=== PATIENT | female | born 1970 | race African-American/Black ===

== ENCOUNTER 2017-07-09 16:31 | Inpatient (IN) | payer OTHER ==
[2017-07-09 16:37] VITALS: BMI 49.9
--- NOTE | 2017-07-09 17:35 | PDOC ---
History of Present Illness <Wendy Tripathi - Last Filed: 07/09/17 22:56> - General History Source: Patient Exam Limitations: No Limitations <Emani Edge - Last Filed: 07/13/17 08:08> - General Chief Complaint: Blood Pressure Problem Stated Complaint: S.O.B (PCP SENT) Time Seen by Provider: 07/09/17 17:34 - History of Present Illness Initial Comments: 07/09/17 17:49 47 yr female history of HTN, borderline DM, chronic bronchitis presents with cough for 2 weeks getting worse. Pt was treated with prednisone, albuterol with no relief. Pt went to her PMD this am found to be hypertensive was given 0.1mg clonidine PO and was told to go to the ER. Pt states she had some things to do "that cause her stress" and is in the ER now. Pt c/o headache and cough no chest pain neg numbness or tingling. (Emani Edge) Past History <Wendy Tripathi - Last Filed: 07/09/17 22:56> - Past Medical History Asthma: Yes HTN: Yes - Immunization History Immunization Up to Date: Yes - Suicide/Smoking/Psychosocial Hx Smoking History: Current some day smoker Number of Cigarettes Smoked Daily: 5 Information on smoking cessation initiated: No 'Breaking Loose' booklet given: 03/01/15 Hx Alcohol Use: No Drug/Substance Use Hx: No <Emani Edge - Last Filed: 07/13/17 08:08> - Past Medical History Allergies/Adverse Reactions: Allergies Allergy/AdvReac Type Severity Reaction Status Date / Time No Known Allergies Allergy Verified 07/09/17 16:34 Home Medications: Ambulatory Orders Albuterol Sulfate Inhaler - [Ventolin HFA Inhaler -] 2 inh PO Q4H PRN 02/28/15 Ascorbic Acid [Vitamin C] 100 mg PO DAILY #30 tablet 03/03/15 Benzonatate [Tessalon Perle -] 100 mg PO TID #21 capsule 07/17/16 Hydralazine HCl [Apresoline -] 25 mg PO TID 07/10/17 Metformin HCl 500 mg PO BID 07/10/17 Spironolactone 50 mg PO DAILY 07/10/17 Enalapril Maleate [Vasotec] 20 mg PO BID #60 tablet 07/11/17 Prednisone [Deltasone -] 10 mg PO DAILY #2 tablet 07/11/17 Prednisone [Deltasone -] 20 mg PO DAILY #2 tablet 07/11/17 Cardiac Specific PMH - Complaint Specific PMHX Abdominal Aortic Aneurysm: No Angina: No Cardiac Arrhythmia: No Cardiac Stent: No GERD: No Myocardial Infarction: No Pacemaker: No Pulmonary Embolus: No Valvular Heart Disease: No Peripheral Vascular Disease: No <Emani Edge - Last Filed: 07/13/17 08:08> Review of Systems - Review of Systems Able to Perform ROS?: Yes Is the patient limited Syriac proficient: No Constitutional: No: Symptoms Reported HEENTM: No: Symptoms Reported Respiratory: Yes: Cough, Wheezing Cardiac (ROS): No: Symptoms Reported ABD/GI: No: Symptoms Reported, Other : No: Symptoms Reported Musculoskeletal: No: Muscle Pain Integumentary: No: Symptoms Reported <Emani Egde - Last Filed: 07/13/17 08:08> *Physical Exam - Physical Exam General Appearance: Yes: Nourished, Appropriately Dressed HEENT: positive: EOMI, PARVEEN, Normal ENT Inspection, TMs Normal, Pharynx Normal, Other (post nasal drip ) Neck: positive: Supple. negative: Tender Respiratory/Chest: positive: Wheezing Cardiovascular: positive: Regular Rhythm, Regular Rate Gastrointestinal/Abdominal: positive: Normal Bowel Sounds, Soft Musculoskeletal: positive: Normal Inspection Extremity: positive: Normal Capillary Refill, Normal Inspection, Normal Range of Motion Integumentary: positive: Normal Color, Dry, Warm Neurologic: positive: Fully Oriented, Alert, Normal Mood/Affect, Normal Response , Motor Strength 5/5 <Emani Edge - Last Filed: 07/13/17 08:08> - Vital Signs Last Vital Signs Temp Pulse Resp BP Pulse Ox 98.4 F 72 20 172/105 96 07/11/17 19:54 07/11/17 19:54 07/11/17 19:54 07/11/17 19:54 07/11/17 09:00 Heart Score/ECG Review <Wendy Tripathi - Last Filed: 07/09/17 22:56> - ECG Intrepretation Rhythm: Regular Rhythm - ST and T Prolonged Q-T Interval: Yes <Emani Edge - Last Filed: 07/13/17 08:08> - ST and T Comment:: 07/09/17 18:33 signed by ER attending (Emani Edge) ED Treatment Course - LABORATORY CBC & Chemistry Diagram: 07/09/17 18:11 07/09/17 18:11 <Wendy Tripathi - Last Filed: 07/09/17 22:56> - LABORATORY CBC & Chemistry Diagram: 07/11/17 05:35 07/11/17 05:35 <Emani Edge - Last Filed: 07/13/17 08:08> - ADDITIONAL ORDERS Additional order review: 07/10/17 07/09/17 06:15 18:11 RBC 5.43 H 5.55 H D MCV 74.2 L 74.4 L MCHC 31.6 L 31.9 L RDW 18.6 H 18.6 H D MPV 9.1 9.2 Neutrophils % 81.6 D 54.8 Lymphocytes % 13.1 D 31.3 D Monocytes % 5.0 7.8 Eosinophils % 0.1 D 5.4 H D Basophils % 0.2 0.7 - RADIOLOGY Radiology Studies Ordered: Category Date Time Status CHEST PA & LAT [RAD] Stat Radiology 07/09/17 19:04 Completed - Medications Given in the ED: ED Medications Discontinued Medications Generic Name Dose Route Start Last Admin Trade Name Freq PRN Reason Stop Dose Admin Acetaminophen 650 mg 07/09/17 17:48 07/09/17 18:13 Tylenol - PO 07/09/17 17:49 650 mg ONCE ONE Administration Albuterol/Ipratropium 1 amp 07/09/17 17:44 07/09/17 18:17 Duoneb - NEB 07/09/17 17:45 1 amp ONCE ONE Administration Albuterol/Ipratropium 1 amp 07/10/17 11:29 07/11/17 13:00 Duoneb - NEB 1 amp Q4H PRN Administration SHORTNESS OF BREATH Clonidine 0.1 mg 07/09/17 17:44 07/09/17 18:13 Catapres - PO 07/09/17 17:45 0.1 mg ONCE ONE Administration Enalapril Maleate 20 mg 07/09/17 18:51 07/09/17 19:14 Vasotec - PO 07/09/17 18:52 20 mg ONCE ONE Administration Enalapril Maleate 20 mg 07/10/17 12:45 07/11/17 09:22 Vasotec - PO 20 mg DAILY [facility] Administration Heparin Sodium (Porcine) 5,000 unit 07/10/17 22:00 07/11/17 13:52 Heparin - SQ 5,000 unit TID RAND Administration Hydralazine HCl 25 mg 07/10/17 14:00 07/11/17 13:52 Apresoline - PO 25 mg TID RAND Administration Hydrochlorothiazide 25 mg 07/09/17 18:50 07/09/17 19:14 Hctz - PO 07/09/17 18:51 25 mg ONCE ONE Administration Hydrochlorothiazide 50 mg 07/10/17 12:45 07/10/17 13:07 Hctz - PO 50 mg DAILY RAND Administration Labetalol HCl 1,000 mg/ Sodium 1,000 mls @ 120 mls/hr 07/10/17 16:15 07/10/17 17:35 Chloride IV Not Given TITR RAND 2 MG/MIN Insulin Aspart 1 vial 07/10/17 07:00 07/11/17 16:52 Novolog Vial Sliding Scale - SQ Not Given ACHS [facility] Protocol Pantoprazole Sodium 40 mg 07/10/17 10:00 07/11/17 09:22 Protonix - PO 40 mg DAILY RAND Administration Prednisone 60 mg 07/09/17 18:51 07/09/17 19:14 Deltasone - PO 07/09/17 18:52 60 mg ONCE ONE Administration Prednisone 40 mg 07/10/17 12:00 07/11/17 09:22 Deltasone - PO 07/11/17 10:01 40 mg DAILY RAND Administration Spironolactone 25 mg 07/09/17 18:51 07/09/17 19:14 Aldactone - PO 07/09/17 18:52 25 mg ONCE ONE Administration Spironolactone 50 mg 07/10/17 12:45 07/11/17 09:22 Aldactone - PO 50 mg DAILY RAND Administration Medical Decision Making <Wendy Tripathi - Last Filed: 07/09/17 22:56> <Emani Edge - Last Filed: 07/13/17 08:08> - Medical Decision Making 07/09/17 17:52 cc: cough for one week getting worse, headache , no chest pain or SOB pt recently treated with prednsione and albuterol pt states she is non complaint at times with her HTN meds pt seen in her PMD's office today given 0.1mg clonidine at 11am pt arrives in ER now for further evaluation 07/09/17 17:57 will give 0.1mg clonidine and re-eval in one hour 07/09/17 18:09 Ekg reviewed with unchanged from 2015. case discussed [facility] will give pt her usual antihypertensive meds and treat for bronchitis. 07/09/17 18:[address] Mccain would like troponin done and wait for that result. 07/09/17 19:00 signed out to NICHOL Tripathi 07/09/17 19:03 07/09/17 19:04 (Emani Edge) *DC/Admit/Observation/Transfer - Discharge Dispostion Admit: Yes <Wendy Tripathi - Last Filed: 07/09/17 22:56> <Emani Edge - Last Filed: 07/13/17 08:08> Diagnosis at time of Disposition: Elevated troponin HTN (hypertension) Qualifiers: Hypertension type: essential hypertension Qualified Code(s): I10 - Essential ( primary) hypertension - Discharge Dispostion Disposition: HOME Condition at time of disposition: Improved - Prescriptions - Referrals - Patient Instructions
[2017-07-09] MEDS ORDERED: ALBUTEROL SO4 2.5/IPRATROPIUM 0.5 INH SOL 3 ML VIAL.NEB. NEB ONE ×2 (17:44→18:14)
[2017-07-09] MEDS ORDERED: cloNIDine HCL 0.1 MG TABLET PO ONE (17:44)
[2017-07-09] MEDS ORDERED: ACETAMINOPHEN 325 MG TABLET (FP) PO ONE (17:48)
[2017-07-09] MEDS ORDERED: ACETAMINOPHEN 325 MG TABLET (FP) ONE (18:10)
[2017-07-09] MEDS ORDERED: cloNIDine HCL 0.1 MG TABLET ONE (18:11)
[2017-07-09 18:31] LABS: BASOPHIL 0.7 % (0-2.0); EOSINOPHIL 5.4 % (0-4.5); MCH 23.7 pg (25.7-33.7); MCHC 31.9 g/dl (32.0-36.0); MEAN CELL VOLUME 74.4 fl (80-96); MEAN PLT VOLUME 9.2 fl (7.5-11.1); NEUTROPHILS 54.8 % (42.8-82.8); PLATELET COUNT 297 K/MM3 (134-434); RDW 18.6 % (11.6-15.6); WHITE BLOOD COUNT 9.2 K/mm3 (4.0-10.0)
[2017-07-09 18:43] LABS: URINE APPEARANCE CLEAR; URINE BILIRUBIN NEGATIVE (NEGATIVE); URINE BLOOD NEGATIVE (NEGATIVE); URINE COLOR YELLOW; URINE GLUCOSE (UA) NEGATIVE (NEGATIVE); URINE KETONE NEGATIVE (NEGATIVE); URINE LEUK ESTERASE NEGATIVE (NEGATIVE); URINE NITRITE NEGATIVE (NEGATIVE); URINE PROTEIN NEGATIVE (NEGATIVE); URINE UROBILINOGEN NEGATIVE mg/dL (0.2-1.0)
[2017-07-09 18:43] LABS: ANION GAP 5 (8-16); BILIRUBIN,TOTAL 0.9 mg/dL (0.2-1.0); CALCIUM 9.5 mg/dL (8.5-10.1); CO2 32 mmol/L (21-32); GLUCOSE,RANDOM 105 mg/dL (74-106); SGOT/AST 8 U/L (15-37); SGPT/ALT 22 U/L (12-78); TOT PROT 7.7 g/dl (6.4-8.2)
[2017-07-09 18:44] LABS: ALK PHOS 62 U/L (45-117)
[2017-07-09] MEDS ORDERED: HYDROCHLOROTHIAZIDE 25 MG TABLET (FP) PO ONE (18:50)
[2017-07-09] MEDS ORDERED: SPIRONOLACTONE 25 MG TABLET (FP) PO ONE (18:51)
[2017-07-09] MEDS ORDERED: ENALAPRIL MALEATE 10 MG TABLET (FP) PO ONE (18:51)
[2017-07-09] MEDS ORDERED: predniSONE 20 MG TABLET (UD) PO ONE (18:51)
[2017-07-09] MEDS ORDERED: HYDROCHLOROTHIAZIDE 25 MG TABLET (FP) ONE (18:58)
[2017-07-09] MEDS ORDERED: ENALAPRIL MALEATE 5 MG TABLET (FP) ONE (18:58)
[2017-07-09] MEDS ORDERED: predniSONE 20 MG TABLET (UD) ONE (18:58)
[2017-07-09] MEDS ORDERED: SPIRONOLACTONE 25 MG TABLET (FP) ONE (18:59)
[2017-07-09 20:40] LABS: TROPONIN I 0.1 ng/ml (0.00-0.05)
--- NOTE | 2017-07-09 22:50 | HP ---
CHIEF COMPLAINT: Elevated BP PCP: Dr. Pichardo HISTORY OF PRESENT ILLNESS: 47 y.o. F with pmh of HTN, borderline DM, and asthma/chronic bronchitis presented from PCP for elevated BP. Patient states she had a cough and went to [facility] ED last week. She was d/c with albuterol and prednisone 40 mg, which she has been taking for the past week. She also endorses taking OTC nyquil and robitussin. She states she has decreased compliance over the past week of her HTN medications at night due to the OTC medication. Patient went to her PCP today due to her cough that has not improved. She was found to have BP of >200/ 100. She was given 0.1 mg clonidine and sent to the ED. ER course was notable for: (1) VS- elevated BP, troponin- 0.10 (2) UA- negative (3) EKG- NSR, prolonged qt interval HOME MEDICATIONS: Home Medications Medication Instructions Recorded Albuterol Sulfate Inhaler - 2 inh PO Q4H PRN 02/28/15 [Ventolin HFA Inhaler -] Hydrochlorothiazide [Hctz -] 25 mg PO DAILY 02/28/15 Ascorbic Acid [Vitamin C] 100 mg PO DAILY #30 tablet 03/03/15 Benzonatate [Tessalon Pearls -] 100 mg PO TID #21 capsule 07/17/16 Prednisone [Deltasone -] 40 mg PO DAILY #8 tablet 07/17/16 REVIEW OF SYSTEMS CONSTITUTIONAL: Absent: fever, chills, diaphoresis, generalized weakness, malaise, loss of appetite, weight change HEENT: Absent: rhinorrhea, nasal congestion, throat pain, throat swelling, difficulty swallowing, mouth swelling, ear pain, eye pain, visual changes CARDIOVASCULAR: Absent: chest pain, syncope, palpitations, irregular heart rate, lightheadedness , peripheral edema RESPIRATORY: Absent: cough, shortness of breath, dyspnea with exertion, orthopnea, wheezing, stridor, hemoptysis GASTROINTESTINAL: Absent: abdominal pain, abdominal distension, nausea, vomiting, diarrhea, constipation, melena, hematochezia GENITOURINARY: Absent: dysuria, frequency, urgency, hesitancy, hematuria, flank pain, genital pain MUSCULOSKELETAL: Absent: myalgia, arthralgia, joint swelling, back pain, neck pain SKIN: Absent: rash, itching, pallor HEMATOLOGIC/IMMUNOLOGIC: Absent: easy bleeding, easy bruising, lymphadenopathy, frequent infections ENDOCRINE: Absent: unexplained weight gain, unexplained weight loss, heat intolerance, cold intolerance NEUROLOGIC: Absent: headache, focal weakness or paresthesias, dizziness, unsteady gait, seizure, mental status changes, bladder or bowel incontinence PSYCHIATRIC: Absent: anxiety, depression, suicidal or homicidal ideation, hallucinations. PHYSICAL EXAMINATION Vital Signs - 24 hr 07/09/17 07/09/17 07/09/17 16:34 19:39 22:07 Temperature 99 F 98.2 F 98.7 F Pulse Rate 101 H Pulse Rate [ 90 83 Right Radial] Respiratory 18 20 18 Rate Blood Pressure 190/113 Blood Pressure 163/115 159/108 [Left Arm] O2 Sat by Pulse 100 98 98 Oximetry (%) GENERAL: Awake, alert, and fully oriented, in no acute distress. HEAD: Normal with no signs of trauma. EYES: Pupils equal, round and reactive to light, extraocular movements intact, sclera anicteric, conjunctiva clear. No lid lag. EARS, NOSE, THROAT: Oropharynx clear without exudates. Moist mucous membranes. NECK: Normal range of motion, supple without lymphadenopathy, JVD, or masses. LUNGS: Breath sounds equal, Mild expiratory wheezes, and no crackles. No accessory muscle use. HEART: Regular rate and rhythm, normal S1 and S2 without murmur, rub or gallop. ABDOMEN: Soft, nontender, not distended, normoactive bowel sounds, no guarding, no rebound, no masses. No hepatomegaly or splenomegaly. MUSCULOSKELETAL: Normal range of motion at all joints. No bony deformities or tenderness. No CVA tenderness. UPPER EXTREMITIES: 2+ pulses, warm, well-perfused. No cyanosis. No clubbing. No peripheral edema. LOWER EXTREMITIES: 2+ pulses, warm, well-perfused. No calf tenderness. No peripheral edema. NEUROLOGICAL: Cranial nerves II-XII intact. Normal speech. PSYCHIATRIC: Cooperative. Good eye contact. Appropriate mood and affect. SKIN: Warm, dry, normal turgor, no rashes or lesions noted, normal capillary refill. Laboratory Results - last 24 hr 07/09/17 07/09/17 07/09/17 18:06 18:11 18:11 WBC 9.2 RBC 5.55 H D Hgb 13.2 D Hct 41.3 D MCV 74.4 L MCH 23.7 L MCHC 31.9 L RDW 18.6 H D Plt Count 297 D MPV 9.2 Neutrophils % 54.8 Lymphocytes % 31.3 D Monocytes % 7.8 Eosinophils % 5.4 H D Basophils % 0.7 Sodium 136 Potassium 3.5 Chloride 99 Carbon Dioxide 32 Anion Gap 5 L BUN 15 D Creatinine 1.0 D Creat Clearance w eGFR 59.96 Random Glucose 105 Calcium 9.5 Magnesium Total Bilirubin 0.9 D AST 8 L ALT 22 D Alkaline Phosphatase 62 Creatine Kinase Creatine Kinase Index CK-MB (CK-2) Troponin I Total Protein 7.7 Albumin 4.0 Urine Color Yellow Urine Appearance Clear Urine pH 5.0 Urine Protein Negative Urine Glucose (UA) Negative Urine Ketones Negative Urine Blood Negative Urine Nitrite Negative Urine Bilirubin Negative Urine Urobilinogen Negative Urine HCG, Qual Negative 07/09/17 07/09/17 07/09/17 18:36 19:51 20:00 WBC RBC Hgb Hct MCV MCH MCHC RDW Plt Count MPV Neutrophils % Lymphocytes % Monocytes % Eosinophils % Basophils % Sodium Potassium Chloride Carbon Dioxide Anion Gap BUN Creatinine Creat Clearance w eGFR Random Glucose Calcium Magnesium 2.0 Total Bilirubin AST ALT Alkaline Phosphatase Creatine Kinase 153 Cancelled Creatine Kinase Index 0.7 CK-MB (CK-2) 1.184 Troponin I 0.10 H Cancelled Total Protein Albumin Urine Color Urine Appearance Urine pH Urine Protein Urine Glucose (UA) Urine Ketones Urine Blood Urine Nitrite Urine Bilirubin Urine Urobilinogen Urine HCG, Qual ASSESSMENT/PLAN: #Hypertensive urgency -BP better controlled -Restart home meds, confirm with pharmacy in the AM -Monitor BP -Vasotec 1.25 mg q4h prn for sbp >180 and dbp >110 #Troponinemia -Troponin #1- 0.1 -Trend troponins/EKG #DM, borderline -Hold metformin -BGM achs -ISS achs #Cough, 2/2 to chronic bronchitis -Prednisone 40 mg daily, taper as tolerated -Duonebs prn #FEN/GI -None -wnl -Sodium/Diabetic Diet #PPx -DVT- scd's -GI- protonix 40 mg po daily #Dispo -Admit to tele-obs -Trend troponins -Monitor BP Visit type - Emergency Visit Emergency Visit: Yes ED Registration Date: 07/10/17 Care time: The patient presented to the Emergency Department on the above date and was hospitalized for further evaluation of their emergent condition. - New Patient This patient is new to me today: Yes Date on this admission: 07/10/17 - Critical Care Critical Care patient: No
[2017-07-09] MEDS ORDERED: ENALAPRIL MALEATE 2.5 MG TABLET (FP) PO PRN (22:51)
--- NOTE | 2017-07-10 00:25 | PN ---
Teaching Attending Note Name of Resident: Houston Ferrera ATTENDING PHYSICIAN STATEMENT I saw and evaluated the patient. I reviewed the resident's note and discussed the case with the resident. I agree with the resident's findings and plan as documented. SUBJECTIVE: 47 year old female that presents to the ED, sent by PMD for evaluation of elevated blood pressure. She reports 10 day history of URI and dry cough for which she was prescribed prednisone. She also used over the counter mucomyst and cough syrup while skipping nightly dose of her blood pressure medications. Her BP in PMDs office was above 100 diastolic . She denied chest pain however Troponin was obtained in ED and was mildly positive PMH HTN Obesity OBJECTIVE: Vital Signs Temperature 98.7 F 07/09/17 22:07 Pulse Rate 83 07/09/17 22:07 Respiratory Rate 18 07/09/17 22:07 Blood Pressure 159/108 07/09/17 22:07 O2 Sat by Pulse Oximetry (%) 98 07/09/17 22:07 HEENT Perrl CVS S1 S2 WNL, no MRG RS CTA B/L EXT no edema CBC, BMP 07/09/17 18:11 07/09/17 18:11 ASSESSMENT AND PLAN: 1. Hypertensive urgency - restart home med regimen -Vasotec 1.25 mg q4h prn for sbp >180 and dbp >110 2. Troponinemia- likely secondary to htn strain - repeat Troponin - telemetry 3. Bronchitis/ URI likely viral -Duonebs prn -taper prednisone - PPI - decongestants at night - cough suppressants
[2017-07-10 07:01] LABS: BASOPHIL 0.2 % (0-2.0); EOSINOPHIL 0.1 % (0-4.5); MCH 23.4 pg (25.7-33.7); MCHC 31.6 g/dl (32.0-36.0); MEAN CELL VOLUME 74.2 fl (80-96); MEAN PLT VOLUME 9.1 fl (7.5-11.1); NEUTROPHILS 81.6 % (42.8-82.8); PLATELET COUNT 283 K/MM3 (134-434); RDW 18.6 % (11.6-15.6); WHITE BLOOD COUNT 10.5 K/mm3 (4.0-10.0)
[2017-07-10 07:26] LABS: ALBUMIN 3.9 g/dl (3.4-5.0); ANION GAP 10 (8-16); BILIRUBIN,TOTAL 0.4 mg/dL (0.2-1.0); CALCIUM 9.9 mg/dL (8.5-10.1); CO2 30 mmol/L (21-32); GLUCOSE,RANDOM 137 mg/dL (74-106); SGOT/AST 5 U/L (15-37); SGPT/ALT 22 U/L (12-78); TOT PROT 7.4 g/dl (6.4-8.2)
[2017-07-10 07:27] LABS: ALK PHOS 61 U/L (45-117)
[2017-07-10] MEDS: INSULIN SLIDING SCALE (NOVOLOG) 1 VIAL SQ SCH ×4 (08:05→22:41)
[2017-07-10] MEDS ORDERED: PANTOPRAZOLE 40 MG TABLET (FP) ONE (08:56)
[2017-07-10] MEDS: PANTOPRAZOLE 40 MG TABLET (FP) PO SCH (09:27)
[2017-07-10] MEDS ORDERED: ALBUTEROL SO4 2.5/IPRATROPIUM 0.5 INH SOL 3 ML VIAL.NEB. NEB ONE (10:10)
[2017-07-10] MEDS ORDERED: HYDROCHLOROTHIAZIDE 25 MG TABLET (FP) ONE ×2 (11:31→12:51)
[2017-07-10] MEDS ORDERED: HYDROCHLOROTHIAZIDE 25 MG TABLET (FP) PO SCH ×2 (11:45→12:45)
[2017-07-10] MEDS: ALBUTEROL SO4 2.5/IPRATROPIUM 0.5 INH SOL 3 ML VIAL.NEB. NEB PRN (11:46)
[2017-07-10] MEDS: predniSONE 20 MG TABLET (UD) PO SCH (11:52)
[2017-07-10] MEDS ORDERED: ENALAPRIL MALEATE 5 MG TABLET (FP) ONE (12:51)
[2017-07-10] MEDS ORDERED: SPIRONOLACTONE 25 MG TABLET (FP) ONE (12:52)
[2017-07-10] MEDS: ENALAPRIL MALEATE 10 MG TABLET (FP) PO SCH (13:07)
[2017-07-10] MEDS: SPIRONOLACTONE 25 MG TABLET (FP) PO SCH (13:07)
[2017-07-10] MEDS ORDERED: hydrALAZINE HCL 25 MG TABLET (FP) ONE (13:51)
[2017-07-10] MEDS: hydrALAZINE HCL 25 MG TABLET (FP) PO SCH ×2 (14:00→21:29)
--- NOTE | 2017-07-10 14:38 | EKG ---
Test Reason : Blood Pressure : / mmHG Vent. Rate : 083 BPM Atrial Rate : 083 BPM P-R Int : 130 ms QRS Dur : 092 ms QT Int : 434 ms P-R-T Axes : 033 -08 058 degrees QTc Int : 509 ms NORMAL SINUS RHYTHM MINIMAL VOLTAGE CRITERIA FOR LVH, MAY BE NORMAL VARIANT PROLONGED QT ABNORMAL ECG WHEN COMPARED WITH ECG OF 28-FEB-2015 18:45, NO SIGNIFICANT CHANGE WAS FOUND Confirmed by ALLEGRA MENDOZA, PAULETTE ([id number]) on 07/10/2017 2:37:36 PM Referred By: Confirmed By:PAULETTE DINH MD
--- NOTE | 2017-07-10 15:45 | CON.CARD ---
Cardiology Consult (text) - Consultation Consultation Note: CC: htn 47 yo smoker with h/o htn, NIDDM and asthma/chronic bronchitis who p/w cough and was noted to have htn and intermediate troponin elevation. cough for 2 weeks went to [facility] ED last week. She was d/c with albuterol and prednisone 40 mg. Was also taking multiple OTC cold medications: nyqui, mucinexl and robitussin. Additionally during this time she was only taking her medications on a daily basis. Followed up with her PMD today regarding cough and found to be hypertensive (BP of >200/100) was given 0.1mg clonidine PO and was told to go to the ER. + h/a, + cough productive of white sputum no sob, cp, palps, dizziness, le edema, orthopnea, pnd no f/c/s, n/v/d, decreased po intake, rashes, visual changes, bleeding. 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 Hasn't seen him in one year. pmhx/pshx: per hpi, additionally , hysterectomy and knee replacement. fam hx: no premature cad, scd. social hx: current smoker, social etoh, no illicits. ros: per hpi Ambulatory Orders Albuterol Sulfate Inhaler - [Ventolin HFA Inhaler -] 2 inh PO Q4H PRN 02/28/15 Hydrochlorothiazide [Hctz -] 50 mg PO DAILY 02/28/15 Ascorbic Acid [Vitamin C] 100 mg PO DAILY #30 tablet 03/03/15 Benzonatate [Tessalon Pearls -] 100 mg PO TID #21 capsule 07/17/16 Prednisone [Deltasone -] 40 mg PO DAILY #8 tablet 07/17/16 Enalapril Maleate [Vasotec] 20 mg PO DAILY 07/10/17 Hydralazine HCl [Apresoline -] 25 mg PO TID 07/10/17 Metformin HCl 500 mg PO BID 07/10/17 Spironolactone 50 mg PO DAILY 07/10/17 Current Medications Albuterol/Ipratropium (Duoneb -) 1 amp NEB Q4H PRN PRN Reason: SHORTNESS OF BREATH Last Admin: 07/10/17 11:46 Dose: 1 amp Enalapril Maleate (Vasotec -) 20 mg PO DAILY [facility] Last Admin: 07/10/17 13:07 Dose: 20 mg Hydralazine HCl (Apresoline -) 25 mg PO TID [facility] Last Admin: 07/10/17 14:00 Dose: 25 mg Hydrochlorothiazide (Hctz -) 50 mg PO DAILY [facility] Last Admin: 07/10/17 13:07 Dose: 50 mg Insulin Aspart (Novolog Vial Sliding Scale -) 1 vial SQ ACHS [facility] PRN Reason: Protocol Last Admin: 07/10/17 11:52 Dose: Not Given Metformin HCl (Glucophage -) 500 mg PO BID@0700,1630 [facility] Pantoprazole Sodium (Protonix -) 40 mg PO DAILY [facility] Last Admin: 07/10/17 09:27 Dose: 40 mg Prednisone (Deltasone -) 40 mg PO DAILY [facility] Stop: 07/11/17 10:01 Last Admin: 07/10/17 11:52 Dose: 40 mg Spironolactone (Aldactone -) 50 mg PO DAILY [facility] Last Admin: 07/10/17 13:07 Dose: 50 mg Vital Signs - 24 hr 07/09/17 07/09/17 07/09/17 16:34 19:39 22:07 Temperature 99 F 98.2 F 98.7 F Pulse Rate 101 H Pulse Rate [ 90 83 Right Radial] Respiratory 18 20 18 Rate Blood Pressure 190/113 Blood Pressure 163/115 159/108 [Left Arm] O2 Sat by Pulse 100 98 98 Oximetry (%) 07/10/17 05:30 Temperature Pulse Rate Pulse Rate [ 87 Right Radial] Respiratory 18 Rate Blood Pressure Blood Pressure 154/102 [Left Arm] O2 Sat by Pulse 96 Oximetry (%) Intake & Output 07/08/17 07/09/17 07/10/17 07/11/17 07:59 07:59 07:59 07:59 Weight 300 lb nad, calm, overweight jvd flat, neck supple diffuse wheezes, diminished bs, nl effort rrr nl s1, s2 no mrg, non-disp pmi + bs soft nt nd, no hsm ext without e/c/c + dp/pt no carotid bruits aaox3 no jaundice, diaphoresis. CBC, BMP 07/10/17 06:15 07/10/17 06:15 Laboratory Tests 07/09/17 07/09/1707/09/17 18:06 18:11 18:36 Sodium 136 Potassium 3.5 Carbon Dioxide 32 Magnesium 2.0 Total Bilirubin 0.9 D AST 8 L ALT 22 D Alkaline Phosphatase 62 Creatine Kinase Creatine Kinase Index CK-MB (CK-2) Troponin I Albumin 4.0 Urine HCG, Qual Negative 07/09/17 07/10/17 07/10/17 19:51 02:48 06:15 Sodium Potassium Carbon Dioxide Magnesium Total Bilirubin AST ALT Alkaline Phosphatase Creatine Kinase 153 Creatine Kinase Index 0.7 CK-MB (CK-2) 1.184 Troponin I 0.10 H 0.09 H Albumin 3.9 Urine HCG, Qual 07/10/17 06:15 Sodium Potassium Carbon Dioxide Magnesium Total Bilirubin AST ALT Alkaline Phosphatase Creatine Kinase Creatine Kinase Index CK-MB (CK-2) Troponin I 0.09 H Albumin Urine HCG, Qual ekg: nsr, prolonged qtc 509 ms (similar to qtc in 2015), no ischemic changes. tele sr 47 yo smoker with h/o htn, NIDDM and asthma/chronic bronchitis who p/w cough and was noted to have htn and intermediate troponin elevation. early onset htn/acute htn - acute elevation likely in setting of non-adherence to medications in combination with additional prednisone and cold medications which may have worsened htn. - would resume home regimen and monitor. however, hold hctz as below. can uptitrate enalapril dose if needed. - consider work up of secondary causes of htn as outpatient. tsh. - echo pending. elevated troponin - very minimal elevation in intermediate range (peak 0.1) with flat trend in absence of anginal sx's or ekg changes, no concern for acs at this time. - can consider outpatient stress testing once pulmonary issues resolve prolonged qtc ~ 500 ms - also present on ecg in 2015. no family hx of scd. - would reevaluate once bp improves to see if qtc normalizes. - would stop hctz which can prolong qtc. would also stop pantoprazole. - telemetry monitoring. - lyte repletion copd/+ tobacco - mgm't of wheezing/copd per pmd - tobacco cessation counseling.
--- NOTE | 2017-07-10 16:10 | PN ---
Physical Exam: SUBJECTIVE: Patient seen and examined still in ED awaiting a bed. Wants to go home, threatening to sign out AMA, because does not want to wait for a bed. Says she will not stay another night. Voices no physical complaints. Could not give list of home meds. OBJECTIVE: Vital Signs Period Temp Pulse Resp BP Sys/Ventura Pulse Ox Last 24 Hr 87 18 154/102 96 GENERAL: The patient is awake, alert, and fully oriented, in no acute distress. HEAD: Normal with no signs of trauma. EYES: PERRL, extraocular movements intact, sclera anicteric, conjunctiva clear. No ptosis. LUNGS: Breath sounds equal, clear to auscultation bilaterally, no wheezes, no crackles, no accessory muscle use. HEART: Regular rate and rhythm, S1, S2 without murmur, rub or gallop. ABDOMEN: Soft, nontender, nondistended, normoactive bowel sounds, no guarding, no rebound, no hepatosplenomegaly, no masses. EXTREMITIES: 2+ pulses, warm, well-perfused, no edema. NEUROLOGICAL: Cranial nerves II through XII grossly intact. Normal speech, moves all extremities freely. Laboratory Results - last 24 hr 07/10/17 07/10/17 07/10/17 02:48 06:15 06:15 WBC 10.5 H RBC 5.43 H Hgb 12.7 Hct 40.3 MCV 74.2 L MCH 23.4 L MCHC 31.6 L RDW 18.6 H Plt Count 283 MPV 9.1 Neutrophils % 81.6 D Lymphocytes % 13.1 D Monocytes % 5.0 Eosinophils % 0.1 D Basophils % 0.2 Sodium 135 L Potassium 3.9 Chloride 95 L Carbon Dioxide 30 Anion Gap 10 BUN 19 H D Creatinine 1.0 Creat Clearance w eGFR 59.96 Random Glucose 137 H D Calcium 9.9 Total Bilirubin 0.4 D AST 5 L D ALT 22 Alkaline Phosphatase 61 Troponin I 0.09 H Total Protein 7.4 Albumin 3.9 07/10/17 06:15 WBC RBC Hgb Hct MCV MCH MCHC RDW Plt Count MPV Neutrophils % Lymphocytes % Monocytes % Eosinophils % Basophils % Sodium Potassium Chloride Carbon Dioxide Anion Gap BUN Creatinine Creat Clearance w eGFR Random Glucose Calcium Total Bilirubin AST ALT Alkaline Phosphatase Troponin I 0.09 H Total Protein Albumin Active Medications Generic Name Dose Route Start Last Admin Trade Name Freq PRN Reason Stop Dose Admin Albuterol/Ipratropium 1 amp 07/10/17 11:29 07/10/17 11:46 Duoneb - NEB 1 amp Q4H PRN Administration SHORTNESS OF BREATH Enalapril Maleate 20 mg 07/10/17 12:45 07/10/17 13:07 Vasotec - PO 20 mg DAILY RAND Administration Hydralazine HCl 25 mg 07/10/17 14:00 07/10/17 14:00 Apresoline - PO 25 mg TID RAND Administration Hydrochlorothiazide 50 mg 07/10/17 12:45 07/10/17 13:07 Hctz - PO 50 mg DAILY RAND Administration Insulin Aspart 1 vial 07/10/17 07:00 07/10/17 11:52 Novolog Vial Sliding Scale - SQ Not Given ACHS [facility] Protocol Metformin HCl 500 mg 07/10/17 16:30 Glucophage - PO BID@0700,1630 [facility] Pantoprazole Sodium 40 mg 07/10/17 10:00 07/10/17 09:27 Protonix - PO 40 mg DAILY RAND Administration Prednisone 40 mg 07/10/17 12:00 07/10/17 11:52 Deltasone - PO 07/11/17 10:01 40 mg DAILY RAND Administration Spironolactone 50 mg 07/10/17 12:45 07/10/17 13:07 Aldactone - PO 50 mg DAILY RAND Administration Imaging ECG: sinus rhythm @ 83bpm; prolonged QT interval ASSESSMENT/PLAN: Hypertensive emergency --Remains hypertensive with cardiac involvement: elevated, flat trending troponins --restarted four (4) home anti-hypertensives (HCTZ, spironolactone, hydralazine, enalapril) but BP still markedly elevated --start labetolol drip --echo pending --cardiology consult requested NIDDM --hold metformin --Novolog sliding scale coverage Cough secondary to bronchitis --afebrile, no leukocytosis --tapering PO steroids --duonebs PRN Fluids: PO intake adequate Electrolytes: replete as indicated Nutrition: low sodium, diabetic DVT prophylaxis: subq heparin, oob, ambulation HOME MEDICATIONS RECONCILED WITH PHARMACY AND ENTERED INTO EMR Visit type - Emergency Visit Emergency Visit: Yes ED Registration Date: 07/10/17 Care time: The patient presented to the Emergency Department on the above date and was hospitalized for further evaluation of their emergent condition. - New Patient This patient is new to me today: Yes Date on this admission: 07/10/17 - Critical Care Critical Care patient: No
[2017-07-10] MEDS ORDERED: LABETALOL HCL INJECTION 1,000 MG in SODIUM CHLORIDE 800 ML IV SCH (16:15)
[2017-07-10] MEDS ORDERED: metFORMIN HCL 500 MG TABLET (FP) PO SCH (16:30)
[2017-07-10] MEDS: HEPARIN NA (PORCINE) 5,000 UNITS/ML 1ML VIAL SQ SCH (21:28)
[2017-07-11] MEDS: ALBUTEROL SO4 2.5/IPRATROPIUM 0.5 INH SOL 3 ML VIAL.NEB. NEB PRN ×2 (00:24→13:00)
[2017-07-11] MEDS: hydrALAZINE HCL 25 MG TABLET (FP) PO SCH ×2 (06:14→13:52)
[2017-07-11] MEDS: INSULIN SLIDING SCALE (NOVOLOG) 1 VIAL SQ SCH ×3 (06:15→16:52)
[2017-07-11] MEDS: HEPARIN NA (PORCINE) 5,000 UNITS/ML 1ML VIAL SQ SCH ×2 (06:51→13:52)
[2017-07-11 08:16] LABS: ALBUMIN 3.7 g/dl (3.4-5.0); ALK PHOS 63 U/L (45-117); ANION GAP 8 (8-16); BILIRUBIN,TOTAL 0.4 mg/dL (0.2-1.0); CALCIUM 9.3 mg/dL (8.5-10.1); CO2 31 mmol/L (21-32); GLUCOSE,RANDOM 140 mg/dL (74-106); MAGNESIUM 2.2 mg/dL (1.8-2.4); PHOSPHOROUS 3.3 mg/dL (2.5-4.9); SGOT/AST 5 U/L (15-37); SGPT/ALT 21 U/L (12-78)
[2017-07-11 09:19] LABS: BASOPHIL 0.7 % (0-2.0); EOSINOPHIL 0.4 % (0-4.5); MCH 23.3 pg (25.7-33.7); NEUTROPHILS 72.5 % (42.8-82.8); PLATELET COUNT 265 K/MM3 (134-434); RDW 18.7 % (11.6-15.6); WHITE BLOOD COUNT 12.8 K/mm3 (4.0-10.0)
[2017-07-11] MEDS: PANTOPRAZOLE 40 MG TABLET (FP) PO SCH (09:22)
[2017-07-11] MEDS: predniSONE 20 MG TABLET (UD) PO SCH (09:22)
[2017-07-11] MEDS: SPIRONOLACTONE 25 MG TABLET (FP) PO SCH (09:22)
[2017-07-11] MEDS: ENALAPRIL MALEATE 10 MG TABLET (FP) PO SCH (09:22)
--- NOTE | 2017-07-11 11:01 | PN ---
Progress Note (short form) - Note Progress Note: s: no cp sob palps dizzy o: Vital Signs Period Temp Pulse Resp BP Sys/Ventura Pulse Ox Last 24 Hr 97.8 F-98.7 F 64-88 18-18 137-185/78-117 94-96 nad, calm, overweight jvd flat, neck supple cta bl, nl effort rrr nl s1, s2 no mrg + bs soft nt nd ext without e/c/c aaox3 no jaundice, diaphoresis Current Medications Generic Name Dose Route Start Last Admin Trade Name Freq PRN Reason Stop Dose Admin Albuterol/Ipratropium 1 amp 07/10/17 11:29 07/11/17 00:24 Duoneb - NEB 1 amp Q4H PRN Administration SHORTNESS OF BREATH Enalapril Maleate 20 mg 07/10/17 12:45 07/11/17 09:22 Vasotec - PO 20 mg DAILY RAND Administration Heparin Sodium (Porcine) 5,000 unit 07/10/17 22:00 07/11/17 06:51 Heparin - SQ 5,000 unit TID RAND Administration Hydralazine HCl 25 mg 07/10/17 14:00 07/11/17 06:14 Apresoline - PO Not Given TID RAND Insulin Aspart 1 vial 07/10/17 07:00 07/11/17 06:15 Novolog Vial Sliding Scale - SQ Not Given ACHS [facility] Protocol Pantoprazole Sodium 40 mg 07/10/17 10:00 07/11/17 09:22 Protonix - PO 40 mg DAILY RAND Administration Prednisone 20 mg 07/12/17 10:00 Deltasone - PO 07/13/17 10:01 DAILY RAND Spironolactone 50 mg 07/10/17 12:45 07/11/17 09:22 Aldactone - PO 50 mg DAILY RAND Administration CBC, BMP 07/11/17 05:35 07/11/17 05:35 ekg: nsr, prolonged qtc 509 ms (similar to qtc in 2015), no ischemic changes. tele sr echo 06/2017: nl lv/rv, no sig valve path a/p: 47 yo smoker with h/o htn, NIDDM and asthma/chronic bronchitis who p/w cough and was noted to have htn and intermediate troponin elevation. early onset htn/acute htn - acute elevation likely in setting of non-adherence to medications in combination with additional prednisone and cold medications which may have worsened htn. - cont current enalapril, aldactone, hydralazine. Can uptitrate hydralazine if needed. - echo unremarkable here elevated troponin - very minimal elevation in intermediate range (peak 0.1) with flat trend in absence of anginal sx's or ekg changes, no concern for acs at this time. - can consider outpatient stress testing once pulmonary issues resolve prolonged qtc ~ 500 ms - also present on ecg in 2014. no family hx of scd. - would reevaluate once bp improves to see if qtc normalizes. - stopped hctz which can prolong qtc. would also stop pantoprazole. - telemetry benign copd/+ tobacco - mgm't of wheezing/copd per pmd - tobacco cessation counseling. if bp improved this afternoon after AM meds then ok for dc from cardiac pov
[2017-07-11 12:58] LABS: THYROID STIMULATING HORMONE 0.43 uIU/ml (0.358-3.74)
--- NOTE | 2017-07-11 18:28 | PN ---
Teaching Attending Note Name of Resident: Anayeli Patton ATTENDING PHYSICIAN STATEMENT I saw and evaluated the patient. I reviewed the resident's note and discussed the case with the resident. I agree with the resident's findings and plan as documented. SUBJECTIVE: no fever or chills , has no CASTRO , or visual chnages , no weakness OBJECTIVE: NAD CV : RRR Lungs : good air entry. minimal scattered wheezing ext : no edema Abd : soft, NT< ND , No murmurs over renal arteries ASSESSMENT AND PLAN: 47 y/o lady with h/o HTN, DM , and asthma , who presented with severe HTN. 1- HTN emergency with elevated trop : no evidence of ischemia . HTN is due to non compliance with meds - cont enalapril and increase to BID - cont HZN and spironolactone - dc HCTZ , due to prolonged QTc - renal US with doppler was declined ( not inpt procedure ) . w/u for possible secondary HTN can continue as out pt . 2- h/o Asthma with cough , cont short predniosne taper , received 20 today , will give 20 x 1 day then 10 daily x 2 days 3- DM: resume metformine at dc dispo: ok home
--- NOTE | 2017-07-11 19:50 | DS ---
Physical Exam: SUBJECTIVE: Patient seen and examined Feels much better, no more headaches and wants to go home. OBJECTIVE: Vital Signs Period Temp Pulse Resp BP Sys/Ventura Pulse Ox Last 24 Hr 97.8 F-98.7 F 64-81 18-20 137-174/78-117 94-96 PHYSICAL EXAM GENERAL: Obese patient, awake, alert, and fully oriented, in no acute distress. HEAD: Normal with no signs of trauma. EYES: PERRL, extraocular movements intact, sclera anicteric, conjunctiva clear. ENT: Ears normal, nares patent, oropharynx clear without exudates, moist mucous membranes. NECK: Trachea midline, full range of motion, supple. LUNGS: Breath sounds equal, clear to auscultation bilaterally, no wheezes, no crackles, no accessory muscle use. HEART: Regular rate and rhythm, no radio-femoral delay, S1, S2 without murmur, rub or gallop. ABDOMEN: Soft, nontender, nondistended, normoactive bowel sounds, no bruit over the renal arteries, no guarding, no rebound, no hepatosplenomegaly, no masses. EXTREMITIES: 2+ pulses, warm, well-perfused, no edema. NEUROLOGICAL: AOx3. No facial droop, normal tone and power globally. Cranial nerves II through XII grossly intact. Normal speech, gait not observed. PSYCH: Normal mood, normal affect. SKIN: Warm, dry, normal turgor, no rashes or lesions noted. LABS Laboratory Results - last 24 hr 07/10/17 07/10/17 07/11/17 21:31 22:24 05:07 WBC RBC Hgb Hct MCV MCH MCHC RDW Plt Count MPV Neutrophils % Lymphocytes % Monocytes % Eosinophils % Basophils % Sodium Potassium Chloride Carbon Dioxide Anion Gap BUN Creatinine Creat Clearance w eGFR POC Glucometer 314 148 158 Random Glucose Calcium Phosphorus Magnesium Total Bilirubin AST ALT Alkaline Phosphatase Total Protein Albumin TSH 07/11/17 07/11/17 07/11/17 05:35 05:35 11:29 WBC 12.8 H RBC 5.16 Hgb 12.0 Hct 38.7 MCV 75.0 L MCH 23.3 L MCHC 31.0 L RDW 18.7 H Plt Count 265 MPV 9.0 Neutrophils % 72.5 Lymphocytes % 20.3 D Monocytes % 6.1 Eosinophils % 0.4 D Basophils % 0.7 D Sodium 135 L Potassium 3.5 Chloride 96 L Carbon Dioxide 31 Anion Gap 8 BUN 21 H Creatinine 1.0 Creat Clearance w eGFR 59.96 POC Glucometer 117 Random Glucose 140 H Calcium 9.3 Phosphorus 3.3 Magnesium 2.2 Total Bilirubin 0.4 AST 5 L ALT 21 Alkaline Phosphatase 63 Total Protein 7.0 Albumin 3.7 TSH 0.43 07/11/17 15:46 WBC RBC Hgb Hct MCV MCH MCHC RDW Plt Count MPV Neutrophils % Lymphocytes % Monocytes % Eosinophils % Basophils % Sodium Potassium Chloride Carbon Dioxide Anion Gap BUN Creatinine Creat Clearance w eGFR POC Glucometer 253 Random Glucose Calcium Phosphorus Magnesium Total Bilirubin AST ALT Alkaline Phosphatase Total Protein Albumin TSH HOSPITAL COURSE: Date of Admission:07/10/17 Date of Discharge: 07/11/17 47 y/o lady with h/o HTN, DM , and asthma , who presented with severe HTN. Hypertension: Patient had been non compliant with medications and presented with hypertensive emergency - elevated troponins of 0.01 but no evidence of ischemia. Troponins trended down to 0.08. -Vasotec 20mg PO bid Apresoline 25mg PO daily Aldactone 50 PO daily - discontinued HCTZ , due to prolonged QTc - renal US with doppler was declined ( not inpt procedure ) . w/u for possible secondary HTN can continue as out pt . Known asthmatic/COPD with cough was placed on prednisone Continue short prednisone taper , received 40mg today 20Mg x 2 days then 10 daily x 2 days Albutero inhaler DM: resume metformin Continue other home meds To follow up with primary care doctor and manager subway in one week Minutes to complete discharge: 46 Discharge Summary Reason For Visit: ELEVATED TROPONINLEVEL,HYPERTENSION Current Active Problems Asthma exacerbation (Acute) Diabetes (Acute) Elevated troponin (Acute) HTN (hypertension) (Acute) Hypertensive emergency (Acute) Smoker (Acute) URI (upper respiratory infection) (Acute) Condition: Improved - Instructions Diet, Activity, Other Instructions: You were admitted with a very high blood pressure likely because you became irregular with taking your medications. Your heart enzymes lenka for a while likely due to the high blood pressure, but went down when the blood pressure was better. We have change your blood pressure medications: You will stop your home hydrochlorothiazide You will resume what you were given in the hospital: Vasotec 20mg PO daily Apresoline 25mg PO daily Aldactone 50 PO daily We put you on steroids for your asthma/chronic bronchitis that we are tapering down Prednisone-take 20mg tablets 07/12 and 07/13, then 10 tablets each day on 07/14 and 07/15 You may resume all your other medications You will need to exercise and try to loose some weight We would encourage you to consider stopping smoking Drink plenty of fluids to stay well hydrated Limit the salt in your diet Please follow up with your primary care doctor and with your manager subway in one week If feel you are not getting better, or if your symptoms worsen, go to your primary care doctor or to the nearest emergency room Referrals: Keke Camarena MD [Staff Physician] - 1 Week Teresa Mccain [Primary Care Provider] - 1 Week Disposition: HOME - Home Medications Comprehensive Discharge Medication List: Ambulatory Orders Albuterol Sulfate Inhaler - [Ventolin HFA Inhaler -] 2 inh PO Q4H PRN 02/28/15 Ascorbic Acid [Vitamin C] 100 mg PO DAILY #30 tablet 03/03/15 Benzonatate [Tessalon Perle -] 100 mg PO TID #21 capsule 07/17/16 Hydralazine HCl [Apresoline -] 25 mg PO TID 07/10/17 Metformin HCl 500 mg PO BID 07/10/17 Spironolactone 50 mg PO DAILY 07/10/17 Enalapril Maleate [Vasotec] 20 mg PO BID #60 tablet 07/11/17 Prednisone [Deltasone -] 10 mg PO DAILY #2 tablet 07/11/17 Prednisone [Deltasone -] 20 mg PO DAILY #2 tablet 07/11/17 This patient is new to me today: Yes Date on this admission: 07/11/17 Emergency Visit: Yes ED Registration Date: 07/10/17 Care time: The patient presented to the Emergency Department on the above date and was hospitalized for further evaluation of their emergent condition. Critical Care patient: No - Discharge Referral Referred to [facility] Med [facility] No
[2017-07-11 19:55] VITALS: BP 172/105; PULSE 72; TEMP 98.4
--- NOTE | 2017-07-12 09:48 | EKG ---
Test Reason : Blood Pressure : / mmHG Vent. Rate : 063 BPM Atrial Rate : 063 BPM P-R Int : 150 ms QRS Dur : 096 ms QT Int : 456 ms P-R-T Axes : 037 -06 051 degrees QTc Int : 466 ms NORMAL SINUS RHYTHM VOLTAGE CRITERIA FOR LEFT VENTRICULAR HYPERTROPHY ABNORMAL ECG WHEN COMPARED WITH ECG OF 09-JUL-2017 18:25, NO SIGNIFICANT CHANGE WAS FOUND Confirmed by MD CONCHIS, OLEG ([id number]) on 07/12/2017 9:47:58 AM Referred By: DEANDRE DIOR DR Confirmed By:OLEG BALDERRAMA MD
[2017-07-12] MEDS ORDERED: predniSONE 20 MG TABLET (UD) PO SCH (10:00)
--- NOTE | 2017-07-13 09:54 | HOSP ---
Physical Examination Vital Signs: Vital Signs Temperature 98.4 F 07/11/17 19:54 Pulse Rate 72 07/11/17 19:54 Respiratory Rate 20 07/11/17 19:54 Blood Pressure 172/105 07/11/17 19:54 O2 Sat by Pulse Oximetry (%) 96 07/11/17 09:00 Labs: CBC, BMP 07/11/17 05:35 07/11/17 05:35 Hospitalist Encounter Assessment: I was paged by the nurse to evaluate mention patient due to elevated blood pressure 172/105 Patient was already discharged and ready to go home. Patient was advised by the nurse to stay over night to monitor her blood pressure.Patinent refused and decided to go home. Patient left already when I get to the floor. Kemar leavitt PGy1 Visit type - Emergency Visit Emergency Visit: Yes ED Registration Date: 07/10/17 Care time: The patient presented to the Emergency Department on the above date and was hospitalized for further evaluation of their emergent condition. - New Patient This patient is new to me today: Yes Date on this admission: 07/13/17 - Critical Care Critical Care patient: No
[2017-07-14] MEDS ORDERED: predniSONE 10 MG TABLET (UD) PO SCH (10:00)
== END 2017-07-11 20:17 | disposition home or self-care (01) | DRG 199 ==
LOC: JER 16:31 → JERBED 22:58 → J4W 07-10 17:37 → OBSVTOIN 07-10 18:28
PROVIDERS: ADMIT Internal Medicine; ATTEND Internal Medicine
DX: I16.1 Hypertensive emergency (principal); J45.901 Unspecified asthma with (acute) exacerbation; Z68.42 Body mass index [BMI] 45.0-49.9, adult; I10 Essential (primary) hypertension; F17.210 Nicotine dependence, cigarettes, uncomplicated; Z91.14 Patient's other noncompliance with medication regimen; E11.9 Type 2 diabetes mellitus without complications; I45.81 Long QT syndrome; E66.9 Obesity, unspecified; Z79.84 Long term (current) use of oral hypoglycemic drugs; J06.9 Acute upper respiratory infection, unspecified
CPT/HCPCS: 36415; 71020-TC; 80053; 81003; 82553; 83735; 84100; 84443; 84484; 84703; 85025; 93005; 93010; 93306-TC; 94640; 99285-25; G0378; J1644

== ENCOUNTER 2018-09-21 14:10 | Emergency (ER) | payer OTHER ==
--- NOTE | 2018-09-21 14:25 | PDOC ---
History of Present Illness - General Chief Complaint: Blood Pressure Problem Stated Complaint: HEADACHE,HYPERTENTION Time Seen by Provider: 09/21/18 14:24 - History of Present Illness Initial Comments: 09/21/18 14:26 Ms. Leblanc is a 48 yo female w/ pmh of HTN, DM, asthma/chronic bronchitis BIBA for evaluation of sudden onset intense headache. Patient symptoms started approximately 45 minutes before arrival and patient has had nausea, vomiting, and constant headache since. Patient is accompanied by family who provide history as she is intermittently responsive. tPA Exclusion Checklist 0-3hr - Time Elapsed Date last known well: 09/21/18 Time last known well: 13:00 Elaspsed time: 1 Day(s) and 6 Hour(s) and 49 Minutes - Thrombolytic Therapy Candidate Is the patient eligible for Thrombolytic Therapy?: No - Exclusion Criteria 0-3hr SBP greater than 185 or DBP greater than 110mmHg despite tx: No Recent IC/spinal surgery,head trauma or stroke w/in last 3mo: No Hx of previous IC hemorrhage, IC neoplasm, AVM or aneurysm: No Active internal bleeding: Yes Blding diathesis(low plt ct, inc PTT,INR>1.7 or use of NOAC): No Symptoms suggest subarachnoid hemorrhage: Yes CT demonstrates multilobar infarct(>1/3 cerebral hemiphere): No Arterial puncture at noncompressible site in previous 7 days: No Blood glucose concentration less than 50mg/dL (2.7mmol/L): No - Relative Exclusion Criteria 0-3h Life expectancy <1yr/severe co-morbid illness/HEAVY COIL WINDER on admit: No : No Patient/family refused: No Rapid improvement: No Stroke severity too mild: No Recent acute MS (w/in previous 3 months): No Seizure at onset with postictal residual neuro impairments: No Major surgery or serious trauma w/in previous 14 days: No Recent GI or hemorrhage (w/in previous 21 days): No - Ineligibility reason(s) Reasons No tPA given: See reason(s) noted above NIH Stroke Scale - Last Known Well Date/Time & Onset Date Last Known Well: 09/21/18 Time Last Known Well: 13:00 - Initial Evaluation Level of consciousness: Not alert, requires repeat stimulation to attend Ask patient the month and their age: Both incorrect Ask patient to open & close eyes; make fist and let go: Both incorrect Best gaze (horizontal eye movement): Normal Visual field testing: No visual field loss Facial paresis (Show teeth/raise eyebrows/close eyes tight): Normal symmetrical movement Motor Function: Left Arm: Untestable (Joint fused orlimb amputated), explain: ( Patient uncooperative) Motor Function: Right Arm: Untestable (Joint fused or limb amputated), explain : (Patient uncooperative) Motor Function: Left Leg: Untestable (Joint fused or limb amputated), explain: (Patient uncooperative) Motor Function: Right Leg: Untestable )Joint fused orlimb amputated), explain: (Patient uncooperative) Limb Ataxia: Untestable (Joint fused or limb amputated), explain: (Patient uncooperative) Sensory(Use pinprick test arms,legs,trunk,face/side to side): Normal Best language (Describe picture, name items, read sentences): No Aphasia Dysarthria (read several words): Normal articulation Extinction and Inattention: Profound nicko-inattention or extinction to more than one modality - Total Score NIH Stroke Scale Score: 8 Past History - Past Medical History Allergies/Adverse Reactions: Allergies Allergy/AdvReac Type Severity Reaction Status Date / Time No Known Allergies Allergy Verified 09/21/18 14:23 Home Medications: Ambulatory Orders Albuterol Sulfate Inhaler - [Ventolin HFA Inhaler -] 2 inh PO Q4H PRN 02/28/15 Ascorbic Acid [Vitamin C] 100 mg PO DAILY #30 tablet 03/03/15 Spironolactone 50 mg PO DAILY 07/10/17 hydrALAZINE HCL [Apresoline -] 100 mg PO TID 07/10/17 metFORMIN HCL [Metformin HCl] 500 mg PO BID 07/10/17 Enalapril Maleate [Vasotec] 20 mg PO BID #60 tablet 07/11/17 Carvedilol 50 mg PO BID 09/21/18 Enalapril Maleate [Vasotec] 20 mg PO DAILY 09/21/18 Anemia: No Asthma: Yes Cancer: No Cardiac Disorders: No CVA: No CHF: No Dementia: No Diabetes: No GI Disorders: No Disorders: No HTN: Yes Hypercholesterolemia: No Liver Disease: No Seizures: No Thyroid Disease: No - Immunization History Immunization Up to Date: Yes - Suicide/Smoking/Psychosocial Hx Smoking History: Current some day smoker Have you smoked in the past 12 months: Yes Number of Cigarettes Smoked Daily: 5 'Breaking Loose' booklet given: 03/01/15 Hx Alcohol Use: No Drug/Substance Use Hx: No Substance Use Type: None Hx Substance Use Treatment: No Review of Systems - Review of Systems Comments:: 09/21/18 14:56 Unable to obtain further. *Physical Exam - Physical Exam Comments: 09/21/18 14:56 GENERAL: +Patient acutely uncomfortably appearing and morbidly obese. Awake, responsive with significant prompting - fully oriented HEAD: No signs of trauma, normocephalic, atraumatic EYES: PERRLA, EOMI, sclera anicteric, conjunctiva clear ENT: Auricles normal inspection, hearing grossly normal, nares patent, oropharynx clear without exudates. Moist mucosa NECK: Normal ROM, supple, no lymphadenopathy, JVD, or masses LUNGS: No distress, speaks full sentences, clear to auscultation bilaterally HEART: Regular rate and rhythm, normal S1 and S2, no murmurs, rubs or gallops, peripheral pulses normal and equal bilaterally. ABDOMEN: Soft, nontender, normoactive bowel sounds. No guarding, no rebound. No masses EXTREMITIES: Normal inspection, Normal range of motion, no edema. No clubbing or cyanosis. NEUROLOGICAL: Cranial nerves II through XII grossly intact. Normal speech, normal gait, no focal sensorimotor deficits SKIN: Warm, Dry, normal turgor, no rashes or lesions noted. ED Treatment Course - LABORATORY CBC & Chemistry Diagram: 09/21/18 15:12 09/21/18 15:12 Medical Decision Making - Medical Decision Making 09/21/18 14:58 Ms. Leblanc is a 48 yo female w/ pmh as described who presents for evaluation of symptoms concerning for intense migraine vs. SAH. Patient sent to CT immediately for hemmorhage r/o. 09/21/18 15:[address]: sub-arachnoid hemorrhage positive with blood in sylvian fissures. Neurosurgery paged. 09/21/18 15:07 Discussed with Neurosurgery fire protection specialist; patient will need transfer for Angiography. [facility] paged for transfer. 09/21/18 15:[address] Ghandi for further care. Recommended BP < 140 systolic; beta ngoc for control, extra strength tylenol for pain control and gram keppra. Medications written. 2nd line put in R AC. Labetalol drip, 1000mg tylenol, and keprra ordered. 09/21/18 15:47 Transfer team arrived and transporting patient to [facility]. *DC/Admit/Observation/Transfer Diagnosis at time of Disposition: Subarachnoid hemorrhage - Discharge Dispostion Disposition: TRANSFER ACUTE CARE/OTHER HOSP Condition at time of disposition: Critical - Referrals - Patient Instructions - Post Discharge Activity
[2018-09-21 14:29] VITALS: BMI 49.9
--- NOTE | 2018-09-21 14:32 | PDOC ---
Attending Attestation - HPI HPI: 09/21/18 14:39 48 yo female DANYEL with a pmh of HTN, DM, and chronic bronchitis presents with sudden onset of severe headache and altered mental status with associated photosensitivity, sound sensitivity, nausea, and vomiting. <Jesusita Church - Last Filed: 09/21/18 14:39> - Resident Resident Name: Ephraim Watkins - ED Attending Attestation I have performed the following: I have examined & evaluated the patient, The case was reviewed & discussed with the resident, I agree w/resident's findings & plan, Exceptions are as noted - Physicial Exam PE: GENERAL: Awake, alert. Restless in bed, answering some questions. HEAD: No signs of trauma EYES: PERRLA, EOMI, sclera anicteric, conjunctiva clear ENT: Auricles normal inspection, hearing grossly normal, nares patent, oropharynx clear without exudates. Moist mucosa NECK: Normal ROM, supple, no lymphadenopathy, JVD, or masses LUNGS: Breath sounds equal, clear to auscultation bilaterally. No wheezes, and no crackles HEART: Regular rate and rhythm, normal S1 and S2, no murmurs, rubs or gallops ABDOMEN: Soft, nontender, normoactive bowel sounds. No guarding, no rebound. No masses EXTREMITIES: Normal range of motion, no edema. No clubbing or cyanosis. No cords, erythema, or tenderness NEUROLOGICAL: Moving all extremities. Limited by AMS. SKIN: Warm, Dry, normal turgor, no rashes or lesions noted. - Critical Care Time Total Critical Care Time: 35 Critical Care Statement: The care of this patient involved high complexity decision making to prevent further life threatening deterioration of the patient 's condition and/or to evaluate & treat vital organ system(s) failure or risk of failure. - Medical Decision Making Pt taken to CT emergently for CTH, found to have SAH. Discussed with Dr. Gil , recommended transfer out. Accepted to [facility]. <Manisha Bonner - Last Filed: 09/21/18 15:13> Attestations - Attestations Documentation prepared by Jesusita Church, acting as medical coding instructor for Manisha Bonner MD. <Jesusita Church - Last Filed: 09/21/18 14:39>
[2018-09-21] MEDS ORDERED: morphine CARPU-JECT 4 MG/1 ML DISP.SYRIN IVPUSH ONE (14:49)
[2018-09-21] MEDS ORDERED: ONDANSETRON 4 MG/2 ML VIAL IVPUSH ONE (14:49)
[2018-09-21] MEDS ORDERED: morphine SULFATE 4 MG/ML VIAL ONE (14:51)
[2018-09-21] MEDS ORDERED: ONDANSETRON 4 MG/2 ML VIAL ONE (14:52)
[2018-09-21] MEDS ORDERED: ACETAMINOPHEN 1000 MG/100 ML VIAL (NON FORMULARY) IVPB ONE (15:22)
[2018-09-21] MEDS ORDERED: levETIRAcetam 500 MG/5 ML INJECTION VIAL IVPB ONE ×2 (15:22→15:30)
[2018-09-21 15:24] LABS: BASO % 0.4 % (0-2.0); EOS % 2.8 % (0-4.5); HEMATOCRIT 37.6 % (32.4-45.2); HEMOGLOBIN 12.2 GM/dL (10.7-15.3); MCH 24.8 pg (25.7-33.7); MCHC 32.4 g/dl (32.0-36.0); MEAN CELL VOLUME 76.3 fl (80-96); MEAN PLT VOLUME 9.1 fl (7.5-11.1); MONO % 8.3 % (3.8-10.2); NEUT % 62.5 % (42.8-82.8); PLATELET COUNT 235 K/MM3 (134-434); RBC 4.93 M/mm3 (3.60-5.2); RDW 18.3 % (11.6-15.6); WHITE BLOOD COUNT 6.3 K/mm3 (4.0-10.0)
[2018-09-21] MEDS ORDERED: LABETALOL HCL INJECTION 1,000 MG in DEXTROSE 5%-WATER - 800 ML IV SCH (15:30)
[2018-09-21 15:35] LABS: INR 1.12 (0.83-1.09); PROTHROMBIN TIME (PATIENT) 13.2 SEC (9.7-13.0)
[2018-09-21 15:46] LABS: CO2 25 mmol/L (21-32)
[2018-09-21 15:49] LABS: CREATININE 0.9 mg/dL (0.55-1.3)
[2018-09-21 15:50] LABS: ALK PHOS 64 U/L (45-117); ANION GAP 8 MMOL/L (8-16); BILIRUBIN,TOTAL 0.6 mg/dL (0.2-1); BLOOD UREA NITROGEN 11 mg/dL (7-18); CALCIUM 8.8 mg/dL (8.5-10.1); CHLORIDE 104 mmol/L (98-107); GLUCOSE,RANDOM 126 mg/dL (74-106); SGOT/AST 7 U/L (15-37); SGPT/ALT 20 U/L (13-61); SODIUM 137 mmol/L (136-145); TOT PROT 7.6 g/dl (6.4-8.2)
[2018-09-21] MEDS ORDERED: ACETAMINOPHEN INJECTION 100 ML IVPB ONE (15:56)
[2018-09-21 16:30] VITALS: BP 153/83
[2018-09-21 18:36] VITALS: PULSE 78; TEMP 98.4
== END 2018-09-21 16:15 | disposition short-term general hospital (02) ==
LOC: JER 14:10
PROC: 3E033NZ Introduction of Analgesics, Hypnotics, Sedatives into Peripheral Vein, Percutaneous Approach (ICD-10-PCS; principal; 2018-09-21)
PROC: 3E033GC Introduction of Other Therapeutic Substance into Peripheral Vein, Percutaneous Approach (ICD-10-PCS; 2018-09-21)
PROC: 3E0337Z Introduction of Electrolytic and Water Balance Substance into Peripheral Vein, Percutaneous Approach (ICD-10-PCS; 2018-09-21)
DX: I60.9 Nontraumatic subarachnoid hemorrhage, unspecified (principal); I10 Essential (primary) hypertension; E11.9 Type 2 diabetes mellitus without complications; J42 Unspecified chronic bronchitis
CPT/HCPCS: 36415; 70450-TC; 71045-TC-FY; 80053; 82550; 84443; 84484; 84703; 85025; 85610; 85730; 86850; 86900; 86901; 96365; 96375; 99284-25; J0131

== ENCOUNTER 2021-06-12 06:02 | Emergency (ER) | payer OTHER ==
[2021-06-12 06:41] VITALS: TEMP 98.8; BMI 41.5
[2021-06-12] MEDS ORDERED: FAMOTIDINE 10 MG TABLET PO ONE (07:42)
[2021-06-12] MEDS ORDERED: MAG HYDROX/AL HYDROX/SIMETH 30 ML UNIT-DOSE CUP PO ONE (07:42)
[2021-06-12] MEDS ORDERED: MAG HYDROX/AL HYDROX/SIMETH 30 ML UNIT-DOSE CUP ONE ×2 (07:49→08:08)
[2021-06-12] MEDS ORDERED: FAMOTIDINE 10 MG TABLET ONE ×2 (07:49→08:08)
[2021-06-12 08:47] LABS: BASO % 0.5 % (0-2.0); EOS % 3.5 % (0-4.5); HEMATOCRIT 39.7 % (32.4-45.2); HEMOGLOBIN 12.8 GM/dL (10.7-15.3); LYMPH % 26.7 % (8-40); MCH 26.2 pg (25.7-33.7); MCHC 32.2 g/dl (32.0-36.0); MEAN CELL VOLUME 81.2 fl (80-96); MEAN PLT VOLUME 9.1 fl (7.5-11.1); MONO % 10.4 % (3.8-10.2); NEUT % 58.9 % (42.8-82.8); PLATELET COUNT 233 10^3/uL (134-434); RBC 4.89 M/mm3 (3.60-5.2); RDW 18.1 % (11.6-15.6); WHITE BLOOD COUNT 5.5 K/mm3 (4.0-10.0)
[2021-06-12 09:06] LABS: CALCIUM 8.8 mg/dL (8.5-10.1)
[2021-06-12 09:07] LABS: ALBUMIN 3.9 g/dl (3.4-5.0); BLOOD UREA NITROGEN 16.6 mg/dL (7-18)
[2021-06-12 09:10] LABS: CREATININE 1.3 mg/dL (0.55-1.3)
[2021-06-12 09:11] LABS: BILIRUBIN,TOTAL 0.5 mg/dL (0.2-1); TOT PROT 7.3 g/dl (6.4-8.2)
[2021-06-12 10:42] VITALS: BP 154/85; PULSE 74
== END 2021-06-12 10:52 | disposition home or self-care (01) ==
LOC: JER 06:02
DX: R04.2 Hemoptysis (principal)
CPT/HCPCS: 36415; 71046-TC-FY; 80053; 85025; 85379; 93970-TC; 99284-25; C9803; U0003; U0005

== ENCOUNTER 2021-06-20 10:00 | Inpatient (IN) | payer OTHER ==
[2021-06-20] MEDS ORDERED: SODIUM CHLORIDE 1,000 ML IV STA (10:27)
[2021-06-20] MEDS ORDERED: DEXAMETHASONE SOD PHOSPHATE 4 MG/1 ML VIAL IVPUSH ONE (10:27)
[2021-06-20] MEDS ORDERED: ACETAMINOPHEN 1000 MG/100 ML VIAL (NON FORMULARY) IVPB ONE (10:43)
[2021-06-20] MEDS ORDERED: ACETAMINOPHEN INJECTION 100 ML IVPB ONE (11:13)
[2021-06-20] MEDS ORDERED: DEXAMETHASONE SOD PHOSPHATE 4 MG/1 ML VIAL ONE (11:14)
[2021-06-20] MEDS ORDERED: CEFTRIAXONE 1,000 MG in DEXTROSE 5%-WATER - 50 ML IVPB ONE (11:31)
[2021-06-20] MEDS ORDERED: AZITHROMYCIN IVPB 500 MG in DEXTROSE 5%-WATER - 250 ML IVPB ONE (11:32)
[2021-06-20] MEDS ORDERED: AZITHROMYCIN IVPB 500 MG/250 ML BAG IVPB ONE (11:55)
[2021-06-20] MEDS ORDERED: CEFTRIAXONE 1 GM/50 ML BAG ONE (11:55)
[2021-06-20 11:58] LABS: BASO % 0.5 % (0-2.0); HEMATOCRIT 39.6 % (32.4-45.2); LYMPH % 30.6 % (8-40); MCHC 32.8 g/dl (32.0-36.0); MEAN CELL VOLUME 79.1 fl (80-96); MONO % 7.1 % (3.8-10.2); NEUT % 61.8 % (42.8-82.8); PLATELET COUNT 158 10^3/uL (134-434); RBC 5.01 M/mm3 (3.60-5.2); RDW 17.4 % (11.6-15.6); WHITE BLOOD COUNT 3.5 K/mm3 (4.0-10.0)
[2021-06-20 12:06] LABS: INR 1.19 (0.83-1.09); PROTHROMBIN TIME (PATIENT) 14.3 SEC (9.7-13.0)
[2021-06-20 12:08] LABS: ACTIVATED PTT 30.2 SECONDS (25.2-36.5); CHLORIDE 101 mmol/L (98-107); SODIUM 135 mmol/L (136-145)
[2021-06-20 12:10] LABS: CALCIUM 8.2 mg/dL (8.5-10.1)
[2021-06-20 12:11] LABS: ANION GAP 7 MMOL/L (8-16); BLOOD UREA NITROGEN 11.2 mg/dL (7-18); CO2 28 mmol/L (21-32); GLUCOSE,RANDOM 116 mg/dL (74-106)
[2021-06-20 12:14] LABS: SGOT/AST 34 U/L (15-37); SGPT/ALT 32 U/L (13-61)
[2021-06-20 12:15] LABS: BILIRUBIN,TOTAL 0.5 mg/dL (0.2-1); TOT PROT 7.1 g/dl (6.4-8.2)
[2021-06-20 12:17] LABS: ALK PHOS 52 U/L (45-117); N-TERMINAL BNP 539.2 pg/ml (5-125)
[2021-06-20] MEDS ORDERED: ASPIRIN 325 MG TABLET PO ONE (12:36)
[2021-06-20 13:02] LABS: ALBUMIN 3.3 g/dl (3.4-5.0)
[2021-06-20] MEDS ORDERED: ALBUTEROL SO4 HFA INHALER IH PRN (14:37)
[2021-06-20 14:42] LABS: HCG,QUALITATIVE URINE Negative
[2021-06-20 14:45] LABS: EPI CELLS >36 /uL (0-25.1); HYALINE CASTS 3 /uL (0-3.1); URINE APPEARANCE CLOUDY; URINE BACTERIA 827 /uL (0-1359); URINE BILIRUBIN NEGATIVE (NEGATIVE); URINE COLOR YELLOW; URINE GLUCOSE (UA) NEGATIVE (NEGATIVE); URINE KETONE NEGATIVE (NEGATIVE); URINE LEUK ESTERASE NEGATIVE (NEGATIVE); URINE NITRITE NEGATIVE (NEGATIVE); URINE PROTEIN 2+ (NEGATIVE); URINE UROBILINOGEN 0.2 mg/dL (0.2-1.0); URINE WBC 54 /uL (0-25.8)
[2021-06-20 14:46] LABS: URINE RBC 35.9 /uL (0-23.9)
[2021-06-20 16:54] LABS: HEMATOCRIT 40.2 % (32.4-45.2); MCH 25.9 pg (25.7-33.7); MCHC 32.5 g/dl (32.0-36.0); MEAN CELL VOLUME 79.8 fl (80-96); MEAN PLT VOLUME 8.9 fl (7.5-11.1); PLATELET COUNT 152 10^3/uL (134-434); RBC 5.04 M/mm3 (3.60-5.2); WHITE BLOOD COUNT 2.6 K/mm3 (4.0-10.0)
[2021-06-20 17:15] LABS: CALCIUM 8.3 mg/dL (8.5-10.1)
[2021-06-20 17:16] LABS: BLOOD UREA NITROGEN 11.6 mg/dL (7-18)
[2021-06-21] MEDS: FAMOTIDINE 20 MG TABLET PO SCH ×3 (00:09→21:13)
[2021-06-21] MEDS: CARVEDILOL 25 MG TABLET (FP) PO SCH ×3 (00:13→21:13)
[2021-06-21] MEDS: guaiFENesin/D-METHORPHAN HB 10 ML UNIT-DOSE CUPS PO PRN ×4 (00:13→20:41)
[2021-06-21] MEDS: ACETAMINOPHEN 325 MG TABLET (FP) PO PRN ×4 (00:14→20:41)
[2021-06-21] MEDS: ASCORBIC ACID 500 MG TABLET (FP) PO SCH (10:29)
[2021-06-21] MEDS: ASPIRIN 81 MG CHEWABLE TABLETS PO SCH (10:30)
[2021-06-21] MEDS: ENOXAPARIN NA (PORCINE) 40 MG/0.4 ML DISP.SYRIN SQ SCH (10:30)
[2021-06-21] MEDS: DEXAMETHASONE SOD PHOSPHATE 10 MG/1 ML VIAL IVPUSH SCH (10:30)
[2021-06-21] MEDS: ZINC SULFATE 220 MG CAPSULE (FP) PO SCH (10:31)
[2021-06-21] MEDS: DEXTROSE 5%-0.45% SALINE 1,000 ML IV SCH (14:15)
[2021-06-21] MEDS ORDERED: REMDESIVIR 200 MG in SODIUM CHLORIDE 250 ML IVPB ONE (14:30)
[2021-06-21 14:56] LABS: CHOLESTEROL 150 mg/dL (50-200)
[2021-06-21 14:57] LABS: LDL CHOLESTEROL (ONLY SJRH) 91 mg/dL (5-100); TRIGLYCERIDES 102 mg/dL (0-150)
[2021-06-21 14:59] LABS: HDL CHOLESTEROL 38 mg/dL (40-60)
[2021-06-21] MEDS: BUDESONIDE/FORMETEROL FUMARATE 160/4.5 mcg INHALER IH SCH ×2 (15:47→21:13)
[2021-06-21] MEDS ORDERED: DEXTROSE 5%-WATER 100 ML IVPB ONE (17:55)
[2021-06-21] MEDS: CEFTRIAXONE 2 GM in DEXTROSE 5%-WATER 2 GM/100 ML BAG IVPB SCH (17:57)
[2021-06-21] MEDS: AZITHROMYCIN IVPB 500 MG/250 ML BAG IVPB SCH ×2 (18:52→20:41)
[2021-06-22] MEDS: guaiFENesin/D-METHORPHAN HB 10 ML UNIT-DOSE CUPS PO PRN ×3 (03:00→20:34)
[2021-06-22] MEDS: ACETAMINOPHEN 325 MG TABLET (FP) PO PRN ×3 (03:01→20:33)
[2021-06-22] MEDS ORDERED: guaiFENesin/CODEINE 5 ML UNIT-DOSE CUPS PO ONE (04:12)
[2021-06-22] MEDS ORDERED: DEXTROSE 5%-WATER 100 ML IVPB ONE (09:12)
[2021-06-22] MEDS: ENOXAPARIN NA (PORCINE) 40 MG/0.4 ML DISP.SYRIN SQ SCH (09:18)
[2021-06-22] MEDS: DEXAMETHASONE SOD PHOSPHATE 10 MG/1 ML VIAL IVPUSH SCH (09:18)
[2021-06-22] MEDS: ASCORBIC ACID 500 MG TABLET (FP) PO SCH (09:18)
[2021-06-22] MEDS: CEFTRIAXONE 2 GM in DEXTROSE 5%-WATER 2 GM/100 ML BAG IVPB SCH (09:18)
[2021-06-22] MEDS: FAMOTIDINE 20 MG TABLET PO SCH ×2 (09:19→22:20)
[2021-06-22] MEDS: BUDESONIDE/FORMETEROL FUMARATE 160/4.5 mcg INHALER IH SCH ×2 (09:19→22:21)
[2021-06-22] MEDS: ZINC SULFATE 220 MG CAPSULE (FP) PO SCH (09:19)
[2021-06-22] MEDS: ASPIRIN 81 MG CHEWABLE TABLETS PO SCH (09:19)
[2021-06-22] MEDS: CARVEDILOL 25 MG TABLET (FP) PO SCH ×2 (09:19→22:20)
[2021-06-22] MEDS: AZITHROMYCIN IVPB 500 MG/250 ML BAG IVPB SCH (10:37)
[2021-06-22] MEDS: REMDESIVIR 100 MG in SODIUM CHLORIDE 250 ML IVPB SCH ×2 (13:17→14:02)
[2021-06-22] MEDS: DEXTROSE 5%-0.45% SALINE 1,000 ML IV SCH (13:17)
[2021-06-22] MEDS ORDERED: hydrALAZINE HCL 20 MG/ML VIAL IVPUSH ONE (21:55)
[2021-06-23] MEDS ORDERED: CARVEDILOL 25 MG TABLET (FP) PO ONE (00:26)
[2021-06-23] MEDS ORDERED: MELATONIN 1 MG TABLET PO ONE (02:23)
[2021-06-23] MEDS ORDERED: LORazepam 2 MG/ML SDV VIAL ONE (02:33)
[2021-06-23] MEDS ORDERED: LORazepam 2 MG/ML SDV VIAL IVPUSH ONE (02:45)
[2021-06-23] MEDS: guaiFENesin/D-METHORPHAN HB 10 ML UNIT-DOSE CUPS PO PRN ×3 (02:59→18:32)
[2021-06-23] MEDS ORDERED: DEXTROSE 5%-WATER 100 ML IVPB ONE (09:00)
[2021-06-23] MEDS: ENOXAPARIN NA (PORCINE) 40 MG/0.4 ML DISP.SYRIN SQ SCH (09:26)
[2021-06-23] MEDS: ZINC SULFATE 220 MG CAPSULE (FP) PO SCH (09:27)
[2021-06-23] MEDS: DEXAMETHASONE SOD PHOSPHATE 10 MG/1 ML VIAL IVPUSH SCH (09:27)
[2021-06-23] MEDS: FAMOTIDINE 20 MG TABLET PO SCH ×2 (09:27→21:39)
[2021-06-23] MEDS: ASPIRIN 81 MG CHEWABLE TABLETS PO SCH (09:27)
[2021-06-23] MEDS: ASCORBIC ACID 500 MG TABLET (FP) PO SCH (09:27)
[2021-06-23] MEDS: hydrALAZINE HCL 25 MG TABLET (FP) PO SCH ×2 (09:27→21:39)
[2021-06-23] MEDS: CARVEDILOL 25 MG TABLET (FP) PO SCH ×2 (09:27→21:39)
[2021-06-23] MEDS: BUDESONIDE/FORMETEROL FUMARATE 160/4.5 mcg INHALER IH SCH ×2 (09:28→21:40)
[2021-06-23] MEDS: CEFTRIAXONE 2 GM in DEXTROSE 5%-WATER 2 GM/100 ML BAG IVPB SCH (09:28)
[2021-06-23] MEDS ORDERED: VALSARTAN 40 MG TABLET PO SCH (10:00)
[2021-06-23] MEDS: AZITHROMYCIN IVPB 500 MG/250 ML BAG IVPB SCH (11:28)
[2021-06-23] MEDS: REMDESIVIR 100 MG in SODIUM CHLORIDE 250 ML IVPB SCH (13:36)
[2021-06-23 14:44] VITALS: BMI 51.0
[2021-06-23] MEDS ORDERED: hydrALAZINE HCL 25 MG TABLET (FP) PO ONE (17:43)
[2021-06-23] MEDS: ACETAMINOPHEN 325 MG TABLET (FP) PO PRN (18:31)
[2021-06-23] MEDS: MELATONIN 1 MG TABLET PO SCH (21:39)
[2021-06-23] MEDS: clonazePAM 0.5 MG TABLET PO SCH (21:39)
[2021-06-24] MEDS: guaiFENesin/D-METHORPHAN HB 10 ML UNIT-DOSE CUPS PO PRN (04:18)
[2021-06-24] MEDS: ACETAMINOPHEN 325 MG TABLET (FP) PO PRN ×2 (04:18→21:31)
[2021-06-24] MEDS: hydrALAZINE HCL 20 MG/ML VIAL IVPUSH PRN (07:08)
[2021-06-24] MEDS ORDERED: DEXTROSE 5%-WATER 100 ML IVPB ONE (08:36)
[2021-06-24] MEDS: CEFTRIAXONE 2 GM in DEXTROSE 5%-WATER 2 GM/100 ML BAG IVPB SCH (10:09)
[2021-06-24] MEDS: ASCORBIC ACID 500 MG TABLET (FP) PO SCH (10:10)
[2021-06-24] MEDS: FAMOTIDINE 20 MG TABLET PO SCH ×2 (10:10→21:31)
[2021-06-24] MEDS: CARVEDILOL 25 MG TABLET (FP) PO SCH ×2 (10:10→21:31)
[2021-06-24] MEDS: ENOXAPARIN NA (PORCINE) 40 MG/0.4 ML DISP.SYRIN SQ SCH (10:10)
[2021-06-24] MEDS: BUDESONIDE/FORMETEROL FUMARATE 160/4.5 mcg INHALER IH SCH ×2 (10:10→21:31)
[2021-06-24] MEDS: hydrALAZINE HCL 25 MG TABLET (FP) PO SCH (10:10)
[2021-06-24] MEDS: clonazePAM 0.5 MG TABLET PO SCH ×2 (10:10→21:31)
[2021-06-24] MEDS: DEXAMETHASONE SOD PHOSPHATE 10 MG/1 ML VIAL IVPUSH SCH (10:10)
[2021-06-24] MEDS: ZINC SULFATE 220 MG CAPSULE (FP) PO SCH (10:10)
[2021-06-24] MEDS: ASPIRIN 81 MG CHEWABLE TABLETS PO SCH (10:10)
[2021-06-24] MEDS: AZITHROMYCIN IVPB 500 MG/250 ML BAG IVPB SCH (11:08)
[2021-06-24] MEDS ORDERED: hydrALAZINE HCL 25 MG TABLET (FP) PO SCH (14:00)
[2021-06-24] MEDS ORDERED: guaiFENesin/CODEINE 10 ML UNIT-DOSE CUPS PO PRN (14:42)
[2021-06-24] MEDS: hydrALAZINE HCL 50 MG TABLET (FP) PO SCH ×2 (15:13→21:31)
[2021-06-24] MEDS: REMDESIVIR 100 MG in SODIUM CHLORIDE 250 ML IVPB SCH (15:13)
[2021-06-24] MEDS: guaiFENesin/CODEINE 5 ML UNIT-DOSE CUPS PO PRN (21:30)
[2021-06-24] MEDS: MELATONIN 1 MG TABLET PO SCH (21:31)
[2021-06-25] MEDS: guaiFENesin/CODEINE 5 ML UNIT-DOSE CUPS PO PRN ×2 (06:37→13:27)
[2021-06-25] MEDS: hydrALAZINE HCL 50 MG TABLET (FP) PO SCH ×3 (06:37→21:11)
[2021-06-25] MEDS: ACETAMINOPHEN 325 MG TABLET (FP) PO PRN (06:37)
[2021-06-25] MEDS ORDERED: DEXTROSE 5%-WATER 100 ML IVPB ONE (09:09)
[2021-06-25] MEDS: AZITHROMYCIN IVPB 500 MG/250 ML BAG IVPB SCH (10:23)
[2021-06-25] MEDS: CEFTRIAXONE 2 GM in DEXTROSE 5%-WATER 2 GM/100 ML BAG IVPB SCH (10:24)
[2021-06-25] MEDS: ENOXAPARIN NA (PORCINE) 40 MG/0.4 ML DISP.SYRIN SQ SCH (10:25)
[2021-06-25] MEDS: ASCORBIC ACID 500 MG TABLET (FP) PO SCH (10:26)
[2021-06-25] MEDS: FAMOTIDINE 20 MG TABLET PO SCH ×2 (10:26→21:12)
[2021-06-25] MEDS: DEXAMETHASONE SOD PHOSPHATE 10 MG/1 ML VIAL IVPUSH SCH (10:26)
[2021-06-25] MEDS: CARVEDILOL 25 MG TABLET (FP) PO SCH ×2 (10:26→21:12)
[2021-06-25] MEDS: ASPIRIN 81 MG CHEWABLE TABLETS PO SCH (10:26)
[2021-06-25] MEDS: clonazePAM 0.5 MG TABLET PO SCH ×2 (10:26→21:12)
[2021-06-25] MEDS: ZINC SULFATE 220 MG CAPSULE (FP) PO SCH (10:26)
[2021-06-25] MEDS: BUDESONIDE/FORMETEROL FUMARATE 160/4.5 mcg INHALER IH SCH ×2 (10:41→21:24)
[2021-06-25] MEDS: SPIRONOLACTONE 25 MG TABLET PO SCH (12:41)
[2021-06-25] MEDS: REMDESIVIR 100 MG in SODIUM CHLORIDE 250 ML IVPB SCH (13:30)
[2021-06-25] MEDS: MELATONIN 1 MG TABLET PO SCH (21:11)
[2021-06-26] MEDS: guaiFENesin/CODEINE 5 ML UNIT-DOSE CUPS PO PRN ×2 (04:43→09:31)
[2021-06-26] MEDS: hydrALAZINE HCL 50 MG TABLET (FP) PO SCH ×3 (06:27→21:50)
[2021-06-26 07:23] LABS: BASO % 0.1 % (0-2.0); EOS % 0.1 % (0-4.5); HEMATOCRIT 37.5 % (32.4-45.2); HEMOGLOBIN 12.3 GM/dL (10.7-15.3); LYMPH % 12.8 % (8-40); MCH 26.5 pg (25.7-33.7); MCHC 32.9 g/dl (32.0-36.0); MEAN CELL VOLUME 80.5 fl (80-96); MEAN PLT VOLUME 8.7 fl (7.5-11.1); MONO % 5.6 % (3.8-10.2); NEUT % 81.4 % (42.8-82.8); PLATELET COUNT 297 10^3/uL (134-434); RBC 4.65 M/mm3 (3.60-5.2); RDW 17.2 % (11.6-15.6)
[2021-06-26 07:56] LABS: CALCIUM 8.4 mg/dL (8.5-10.1)
[2021-06-26 07:57] LABS: ALBUMIN 2.8 g/dl (3.4-5.0); BLOOD UREA NITROGEN 19.1 mg/dL (7-18)
[2021-06-26 08:00] LABS: CREATININE 0.9 mg/dL (0.55-1.3)
[2021-06-26 08:01] LABS: BILIRUBIN,TOTAL 0.4 mg/dL (0.2-1); TOT PROT 6.2 g/dl (6.4-8.2)
[2021-06-26] MEDS ORDERED: DEXTROSE 5%-WATER 100 ML IVPB ONE (09:15)
[2021-06-26] MEDS: CEFTRIAXONE 2 GM in DEXTROSE 5%-WATER 2 GM/100 ML BAG IVPB SCH (09:21)
[2021-06-26] MEDS: AZITHROMYCIN IVPB 500 MG/250 ML BAG IVPB SCH (09:21)
[2021-06-26] MEDS: ENOXAPARIN NA (PORCINE) 40 MG/0.4 ML DISP.SYRIN SQ SCH (09:22)
[2021-06-26] MEDS: clonazePAM 0.5 MG TABLET PO SCH ×2 (09:30→23:29)
[2021-06-26] MEDS: DEXAMETHASONE SOD PHOSPHATE 10 MG/1 ML VIAL IVPUSH SCH (09:31)
[2021-06-26] MEDS: CARVEDILOL 25 MG TABLET (FP) PO SCH ×2 (09:31→21:50)
[2021-06-26] MEDS: SPIRONOLACTONE 25 MG TABLET PO SCH (09:31)
[2021-06-26] MEDS: FAMOTIDINE 20 MG TABLET PO SCH ×2 (09:31→21:50)
[2021-06-26] MEDS: ASCORBIC ACID 500 MG TABLET (FP) PO SCH (09:31)
[2021-06-26] MEDS: ASPIRIN 81 MG CHEWABLE TABLETS PO SCH (09:31)
[2021-06-26] MEDS: ZINC SULFATE 220 MG CAPSULE (FP) PO SCH (09:32)
[2021-06-26] MEDS: BUDESONIDE/FORMETEROL FUMARATE 160/4.5 mcg INHALER IH SCH ×2 (09:32→21:51)
[2021-06-26] MEDS ORDERED: amLODIPine BESYLATE 10 MG TABLET (FP) PO ONE (12:30)
[2021-06-26] MEDS: hydrALAZINE HCL 20 MG/ML VIAL IVPUSH PRN (17:53)
[2021-06-26] MEDS: MELATONIN 1 MG TABLET PO SCH (23:29)
[2021-06-27] MEDS: hydrALAZINE HCL 50 MG TABLET (FP) PO SCH ×3 (05:37→21:33)
[2021-06-27] MEDS ORDERED: DEXTROSE 5%-WATER 100 ML IVPB ONE (10:26)
[2021-06-27] MEDS: clonazePAM 0.5 MG TABLET PO SCH ×2 (10:34→21:33)
[2021-06-27] MEDS: SPIRONOLACTONE 25 MG TABLET PO SCH (10:34)
[2021-06-27] MEDS: ZINC SULFATE 220 MG CAPSULE (FP) PO SCH (10:34)
[2021-06-27] MEDS: ASPIRIN 81 MG CHEWABLE TABLETS PO SCH (10:34)
[2021-06-27] MEDS: CARVEDILOL 25 MG TABLET (FP) PO SCH ×2 (10:34→21:33)
[2021-06-27] MEDS: amLODIPine BESYLATE 10 MG TABLET (FP) PO SCH (10:34)
[2021-06-27] MEDS: DEXAMETHASONE SOD PHOSPHATE 10 MG/1 ML VIAL IVPUSH SCH (10:35)
[2021-06-27] MEDS: CEFTRIAXONE 2 GM in DEXTROSE 5%-WATER 2 GM/100 ML BAG IVPB SCH (10:35)
[2021-06-27] MEDS: ASCORBIC ACID 500 MG TABLET (FP) PO SCH (10:35)
[2021-06-27] MEDS: FAMOTIDINE 20 MG TABLET PO SCH ×2 (10:36→21:25)
[2021-06-27] MEDS: ENOXAPARIN NA (PORCINE) 40 MG/0.4 ML DISP.SYRIN SQ SCH (10:38)
[2021-06-27] MEDS: AZITHROMYCIN IVPB 500 MG/250 ML BAG IVPB SCH (11:18)
[2021-06-27] MEDS: BUDESONIDE/FORMETEROL FUMARATE 160/4.5 mcg INHALER IH SCH ×2 (12:18→21:33)
[2021-06-27] MEDS: BARICITINIB 2 MG TABLET PO SCH (16:07)
[2021-06-27] MEDS: FUROSEMIDE 40 MG TABLET (FP) PO SCH (16:07)
[2021-06-27] MEDS: MELATONIN 1 MG TABLET PO SCH (21:33)
[2021-06-27] MEDS: ACETAMINOPHEN 325 MG TABLET (FP) PO PRN (21:33)
[2021-06-28] MEDS: FUROSEMIDE 40 MG TABLET (FP) PO SCH ×2 (06:25→15:41)
[2021-06-28] MEDS: hydrALAZINE HCL 50 MG TABLET (FP) PO SCH ×3 (06:25→21:45)
[2021-06-28] MEDS ORDERED: DEXTROSE 5%-WATER 100 ML IVPB ONE (10:15)
[2021-06-28] MEDS: ASCORBIC ACID 500 MG TABLET (FP) PO SCH (10:27)
[2021-06-28] MEDS: ASPIRIN 81 MG CHEWABLE TABLETS PO SCH (10:27)
[2021-06-28] MEDS: FAMOTIDINE 20 MG TABLET PO SCH ×2 (10:27→21:45)
[2021-06-28] MEDS: ZINC SULFATE 220 MG CAPSULE (FP) PO SCH (10:27)
[2021-06-28] MEDS: amLODIPine BESYLATE 10 MG TABLET (FP) PO SCH (10:27)
[2021-06-28] MEDS: CARVEDILOL 25 MG TABLET (FP) PO SCH ×2 (10:27→21:45)
[2021-06-28] MEDS: clonazePAM 0.5 MG TABLET PO SCH ×2 (10:27→13:56)
[2021-06-28] MEDS: SPIRONOLACTONE 25 MG TABLET PO SCH (10:27)
[2021-06-28] MEDS: DEXAMETHASONE SOD PHOSPHATE 10 MG/1 ML VIAL IVPUSH SCH (10:28)
[2021-06-28] MEDS: CEFTRIAXONE 2 GM in DEXTROSE 5%-WATER 2 GM/100 ML BAG IVPB SCH (10:28)
[2021-06-28] MEDS: BARICITINIB 2 MG TABLET PO SCH (10:28)
[2021-06-28] MEDS: AZITHROMYCIN IVPB 500 MG/250 ML BAG IVPB SCH (10:28)
[2021-06-28] MEDS: ACETAMINOPHEN 325 MG TABLET (FP) PO PRN (10:34)
[2021-06-28] MEDS: BUDESONIDE/FORMETEROL FUMARATE 160/4.5 mcg INHALER IH SCH ×2 (11:00→21:45)
[2021-06-28] MEDS: VALSARTAN 160 MG TABLET PO SCH (16:03)
[2021-06-29] MEDS: MELATONIN 1 MG TABLET PO SCH ×2 (00:16→21:32)
[2021-06-29] MEDS: clonazePAM 0.5 MG TABLET PO SCH ×4 (00:16→21:32)
[2021-06-29] MEDS: hydrALAZINE HCL 50 MG TABLET (FP) PO SCH ×3 (06:27→21:31)
[2021-06-29] MEDS: FUROSEMIDE 40 MG TABLET (FP) PO SCH ×2 (06:27→14:23)
[2021-06-29 07:19] LABS: BASO % 0.1 % (0-2.0); EOS % 0.1 % (0-4.5); HEMATOCRIT 40.6 % (32.4-45.2); HEMOGLOBIN 13.4 GM/dL (10.7-15.3); LYMPH % 12.1 % (8-40); MCH 26.2 pg (25.7-33.7); MCHC 32.9 g/dl (32.0-36.0); MEAN CELL VOLUME 79.6 fl (80-96); MEAN PLT VOLUME 8.4 fl (7.5-11.1); MONO % 6.8 % (3.8-10.2); NEUT % 80.9 % (42.8-82.8); PLATELET COUNT 350 10^3/uL (134-434); RBC 5.11 M/mm3 (3.60-5.2); RDW 17.5 % (11.6-15.6); WHITE BLOOD COUNT 8.8 K/mm3 (4.0-10.0)
[2021-06-29 07:21] LABS: CHLORIDE 101 mmol/L (98-107); SODIUM 137 mmol/L (136-145)
[2021-06-29 07:24] LABS: CALCIUM 8.9 mg/dL (8.5-10.1)
[2021-06-29 07:25] LABS: ANION GAP 3 MMOL/L (8-16); BLOOD UREA NITROGEN 23.4 mg/dL (7-18); CO2 33 mmol/L (21-32); GLUCOSE,RANDOM 176 mg/dL (74-106)
[2021-06-29 07:28] LABS: SGOT/AST 13 U/L (15-37); SGPT/ALT 32 U/L (13-61)
[2021-06-29 07:29] LABS: BILIRUBIN,TOTAL 0.5 mg/dL (0.2-1); TOT PROT 6.6 g/dl (6.4-8.2)
[2021-06-29 07:30] LABS: LDH 305 U/L (84-246)
[2021-06-29 07:31] LABS: ALK PHOS 54 U/L (45-117)
[2021-06-29] MEDS ORDERED: PT OWN MED DRAWER 7, Y5N ONE (09:18)
[2021-06-29] MEDS ORDERED: DEXTROSE 5%-WATER 100 ML IVPB ONE (09:18)
[2021-06-29] MEDS: ZINC SULFATE 220 MG CAPSULE (FP) PO SCH (10:05)
[2021-06-29] MEDS: ASPIRIN 81 MG CHEWABLE TABLETS PO SCH (10:05)
[2021-06-29] MEDS: CARVEDILOL 25 MG TABLET (FP) PO SCH ×2 (10:05→21:31)
[2021-06-29] MEDS: VALSARTAN 160 MG TABLET PO SCH (10:05)
[2021-06-29] MEDS: FAMOTIDINE 20 MG TABLET PO SCH ×2 (10:05→21:31)
[2021-06-29] MEDS: SPIRONOLACTONE 25 MG TABLET PO SCH (10:05)
[2021-06-29] MEDS: ASCORBIC ACID 500 MG TABLET (FP) PO SCH (10:05)
[2021-06-29] MEDS: DEXAMETHASONE SOD PHOSPHATE 10 MG/1 ML VIAL IVPUSH SCH (10:05)
[2021-06-29] MEDS: CEFTRIAXONE 2 GM in DEXTROSE 5%-WATER 2 GM/100 ML BAG IVPB SCH (10:05)
[2021-06-29] MEDS: BARICITINIB 2 MG TABLET PO SCH (10:06)
[2021-06-29] MEDS: BUDESONIDE/FORMETEROL FUMARATE 160/4.5 mcg INHALER IH SCH ×2 (10:07→21:32)
[2021-06-29] MEDS: AZITHROMYCIN IVPB 500 MG/250 ML BAG IVPB SCH (10:07)
[2021-06-30] MEDS: FUROSEMIDE 40 MG TABLET (FP) PO SCH ×2 (06:09→14:46)
[2021-06-30] MEDS: hydrALAZINE HCL 50 MG TABLET (FP) PO SCH ×3 (06:09→22:42)
[2021-06-30] MEDS: clonazePAM 0.5 MG TABLET PO SCH ×3 (06:09→22:42)
[2021-06-30] MEDS ORDERED: DEXTROSE 5%-WATER 100 ML IVPB ONE (09:03)
[2021-06-30] MEDS ORDERED: PT OWN MED DRAWER 7, Y5N ONE ×3 (09:04→10:07)
[2021-06-30] MEDS: AZITHROMYCIN IVPB 500 MG/250 ML BAG IVPB SCH (09:15)
[2021-06-30] MEDS: CEFTRIAXONE 2 GM in DEXTROSE 5%-WATER 2 GM/100 ML BAG IVPB SCH (09:15)
[2021-06-30] MEDS: DEXAMETHASONE SOD PHOSPHATE 10 MG/1 ML VIAL IVPUSH SCH (09:16)
[2021-06-30] MEDS: FAMOTIDINE 20 MG TABLET PO SCH ×2 (09:16→22:42)
[2021-06-30] MEDS: CARVEDILOL 25 MG TABLET (FP) PO SCH ×2 (09:16→22:42)
[2021-06-30] MEDS: SPIRONOLACTONE 25 MG TABLET PO SCH (09:16)
[2021-06-30] MEDS: ZINC SULFATE 220 MG CAPSULE (FP) PO SCH (09:17)
[2021-06-30] MEDS: VALSARTAN 160 MG TABLET PO SCH (09:17)
[2021-06-30] MEDS: ASPIRIN 81 MG CHEWABLE TABLETS PO SCH (09:17)
[2021-06-30] MEDS: ASCORBIC ACID 500 MG TABLET (FP) PO SCH (09:18)
[2021-06-30] MEDS: BUDESONIDE/FORMETEROL FUMARATE 160/4.5 mcg INHALER IH SCH ×2 (09:18→22:42)
[2021-06-30] MEDS: ACETAMINOPHEN 325 MG TABLET (FP) PO PRN (10:10)
[2021-06-30] MEDS: BARICITINIB 2 MG TABLET PO SCH (11:32)
[2021-06-30] MEDS: MELATONIN 1 MG TABLET PO SCH (22:42)
[2021-07-01] MEDS: FUROSEMIDE 40 MG TABLET (FP) PO SCH ×2 (06:33→13:44)
[2021-07-01] MEDS: clonazePAM 0.5 MG TABLET PO SCH ×3 (06:33→21:48)
[2021-07-01] MEDS: hydrALAZINE HCL 50 MG TABLET (FP) PO SCH ×3 (06:33→21:48)
[2021-07-01] MEDS ORDERED: DEXTROSE 5%-WATER 100 ML IVPB ONE (09:20)
[2021-07-01] MEDS: BARICITINIB 2 MG TABLET PO SCH (10:06)
[2021-07-01] MEDS: AZITHROMYCIN IVPB 500 MG/250 ML BAG IVPB SCH (10:06)
[2021-07-01] MEDS: ASPIRIN 81 MG CHEWABLE TABLETS PO SCH (10:07)
[2021-07-01] MEDS: FAMOTIDINE 20 MG TABLET PO SCH ×2 (10:07→21:48)
[2021-07-01] MEDS: ASCORBIC ACID 500 MG TABLET (FP) PO SCH (10:07)
[2021-07-01] MEDS: ZINC SULFATE 220 MG CAPSULE (FP) PO SCH (10:07)
[2021-07-01] MEDS: BUDESONIDE/FORMETEROL FUMARATE 160/4.5 mcg INHALER IH SCH ×2 (10:07→21:49)
[2021-07-01] MEDS: CARVEDILOL 25 MG TABLET (FP) PO SCH ×2 (10:07→21:48)
[2021-07-01] MEDS: DEXAMETHASONE SOD PHOSPHATE 10 MG/1 ML VIAL IVPUSH SCH (10:07)
[2021-07-01] MEDS: VALSARTAN 160 MG TABLET PO SCH (10:07)
[2021-07-01] MEDS: SPIRONOLACTONE 25 MG TABLET PO SCH (10:07)
[2021-07-01] MEDS: CEFTRIAXONE 2 GM in DEXTROSE 5%-WATER 2 GM/100 ML BAG IVPB SCH (11:32)
[2021-07-01] MEDS: MELATONIN 1 MG TABLET PO SCH (22:18)
[2021-07-02] MEDS: FUROSEMIDE 40 MG TABLET (FP) PO SCH ×2 (05:50→13:29)
[2021-07-02] MEDS: hydrALAZINE HCL 50 MG TABLET (FP) PO SCH ×2 (05:50→13:29)
[2021-07-02] MEDS: clonazePAM 0.5 MG TABLET PO SCH ×2 (05:50→13:29)
[2021-07-02] MEDS ORDERED: DEXTROSE 5%-WATER 100 ML IVPB ONE (09:18)
[2021-07-02] MEDS: VALSARTAN 160 MG TABLET PO SCH (09:26)
[2021-07-02] MEDS: DEXAMETHASONE SOD PHOSPHATE 10 MG/1 ML VIAL IVPUSH SCH (09:26)
[2021-07-02] MEDS: CARVEDILOL 25 MG TABLET (FP) PO SCH (09:26)
[2021-07-02] MEDS: FAMOTIDINE 20 MG TABLET PO SCH (09:26)
[2021-07-02] MEDS: ZINC SULFATE 220 MG CAPSULE (FP) PO SCH (09:26)
[2021-07-02] MEDS: SPIRONOLACTONE 25 MG TABLET PO SCH (09:26)
[2021-07-02] MEDS: ASCORBIC ACID 500 MG TABLET (FP) PO SCH (09:26)
[2021-07-02] MEDS: ASPIRIN 81 MG CHEWABLE TABLETS PO SCH (09:26)
[2021-07-02] MEDS: AZITHROMYCIN IVPB 500 MG/250 ML BAG IVPB SCH (09:27)
[2021-07-02] MEDS ORDERED: PT OWN MED DRAWER 7, Y5N ONE (09:28)
[2021-07-02] MEDS: BARICITINIB 2 MG TABLET PO SCH (09:29)
[2021-07-02] MEDS: CEFTRIAXONE 2 GM in DEXTROSE 5%-WATER 2 GM/100 ML BAG IVPB SCH (09:29)
[2021-07-02] MEDS: BUDESONIDE/FORMETEROL FUMARATE 160/4.5 mcg INHALER IH SCH (09:30)
[2021-07-02 14:33] VITALS: BP 135/54; PULSE 78; TEMP 98.2
== END 2021-07-02 17:31 | disposition home or self-care (01) | DRG 137 ==
LOC: JER 10:00 → JERBED 10:44 → J4S 23:07
PROVIDERS: ADMIT Internal Medicine; ATTEND Internal Medicine
PROC: XW033E5 Introduction of Remdesivir Anti-infective into Peripheral Vein, Percutaneous Approach, New Technology Group 5 (ICD-10-PCS; principal; 2021-06-21)
DX: U07.1 COVID-19 (principal); I10 Essential (primary) hypertension; J45.909 Unspecified asthma, uncomplicated; J96.01 Acute respiratory failure with hypoxia; D64.9 Anemia, unspecified; E66.01 Morbid (severe) obesity due to excess calories; R04.2 Hemoptysis; J12.82 Pneumonia due to coronavirus disease 2019; D72.819 Decreased white blood cell count, unspecified; I24.8 Other forms of acute ischemic heart disease; G47.33 Obstructive sleep apnea (adult) (pediatric); R73.03 Prediabetes; Z68.43 Body mass index [BMI] 50.0-59.9, adult
CPT/HCPCS: 36415; 70450-TC; 71045-TC-FY; 71250-TC; 80048; 80053; 80061; 81003; 82550; 82553; 82728; 83036; 83605; 83615; 83735; 83880; 84443; 84484; 84703; 85025; 85027; 85379; 85610; 85730; 86140; 86480; 87040; 87070; 87077; 87086; 87205; 87804; 87899; 93005; 93010; 94761; 99285-25; C9399; C9803; J0131; J1100; U0003; U0005

== ENCOUNTER 2023-07-10 02:03 | Emergency (ER) | payer OTHER ==
[2023-07-10 02:07] VITALS: PULSE 65; RESP 17; TEMP 98.1; BMI 41.4
[2023-07-10 02:59] LABS: EOS % 5.2 % (0-4.5); HEMATOCRIT 37.1 % (32.4-45.2); HEMOGLOBIN 12.2 GM/dL (10.7-15.3); LYMPH % 33.3 % (8-40); MCH 25.4 pg (25.7-33.7); MCHC 32.9 g/dl (32.0-36.0); MEAN CELL VOLUME 77.4 fl (80-96); MONO % 6.8 % (3.8-10.2); NEUT % 53.7 % (42.8-82.8); PLATELET COUNT 255 10^3/uL (134-434); RBC 4.79 M/mm3 (3.60-5.2); RDW 15.4 % (11.6-15.6); WHITE BLOOD COUNT 5.7 K/mm3 (4.0-10.0)
[2023-07-10 03:06] LABS: PROTHROMBIN TIME (PATIENT) 11.6 SEC (9.7-13.0)
[2023-07-10 03:09] LABS: ACTIVATED PTT 19.2 SECONDS (25.2-36.5); POTASSIUM 3.6 mmol/L (3.5-5.1)
[2023-07-10 03:10] LABS: CALCIUM 8.6 mg/dL (8.5-10.1)
[2023-07-10 03:11] LABS: ALBUMIN 3.6 g/dl (3.4-5.0); BLOOD UREA NITROGEN 24.2 mg/dL (7-18); MAGNESIUM 2.1 mg/dL (1.8-2.4)
[2023-07-10 03:14] LABS: CREATININE 1.5 mg/dL (0.55-1.3)
[2023-07-10 03:16] LABS: BILIRUBIN,TOTAL 0.2 mg/dL (0.2-1); TOT PROT 6.8 g/dl (6.4-8.2)
[2023-07-10 03:41] VITALS: BP 97/52
== END 2023-07-10 06:03 | disposition left against medical advice (07) ==
LOC: JER 02:03
DX: R55 Syncope and collapse (principal); R74.8 Abnormal levels of other serum enzymes
CPT/HCPCS: 36415; 70450-TC; 70486-TC; 71045-TC-FY; 72125-TC; 80053; 83735; 84484; 84703; 85025; 85610; 85730; 93005; 93010; 99285-25

== ENCOUNTER 2024-06-29 17:49 | Emergency (ER) | payer OTHER ==
[2024-06-29 17:55] VITALS: BMI 35.2
[2024-06-29] MEDS ORDERED: hydrALAZINE HCL 50 MG TABLET (FP) ONE (18:49)
[2024-06-29] MEDS ORDERED: ACETAMINOPHEN 500 MG TABLET (FP) ONE (18:50)
[2024-06-29] MEDS: ACETAMINOPHEN 500 MG TABLET (FP) PO ONE (18:54)
[2024-06-29] MEDS: hydrALAZINE HCL 50 MG TABLET (FP) PO ONE (18:55)
[2024-06-29] MEDS ORDERED: oxyCODONE HCL 5 MG TABLET ONE (19:17)
[2024-06-29] MEDS: oxyCODONE HCL 5 MG TABLET PO ONE (19:20)
[2024-06-29 21:22] VITALS: BP 161/95; PULSE 78; RESP 16
== END 2024-06-29 21:57 | disposition home or self-care (01) ==
LOC: JER 17:49
DX: S13.4XXA Sprain of ligaments of cervical spine, initial encounter (principal); V43.62XA Car passenger injured in collision with other type car in traffic accident, initial encounter; Y92.410 Unspecified street and highway as the place of occurrence of the external cause
CPT/HCPCS: 70450-TC; 72125-TC; 99284-25